=== PATIENT | female | born 1985 | race Caucasian/White ===

== ENCOUNTER 2021-07-29 19:05 | Inpatient (IN) | payer MEDICAID, OTHER ==
[~2021-07-29] VITALS: Ht 162.6 cm; Wt 72.5 kg
[2021-07-29 20:31] LABS: Basophils # (auto) 0.1 10 ^3/uL (0-0.2); Basophils % (auto) 0.6 % (0.0-2.0); Eosinophils # (auto) 0.1 10 ^3/uL (0-0.8); Eosinophils % (auto) 0.6 % (0.0-7.0); Hematocrit 34.8 % (36.0-46.0); Lymphocytes # (auto) 2.2 10 ^3/uL (0.4-5.4); Lymphocytes % (auto) 16.4 % (10.0-50.0); Mean Corpuscular Hgb Conc. 34.5 g/dL (32.0-36.0); Mean Corpuscular Volume 92.7 fL (80.0-100.0); Monocytes # (auto) 1.3 10 ^3/uL (0-1.3); Neutrophils # (auto) 9.7 10 ^3/uL (1.6-8.6); Neutrophils % (auto) 72.4 % (37.0-80.0); Nucleated Red Blood Cells % 0.1 %; Red Blood Cells 3.75 10^6/uL (4.0-5.20); White Blood Cell 13.4 10^3/uL (4.4-10.8)
[2021-07-29 20:45] LABS: INR 1.06 (0.9-1.15); Partial Thromboplastin Time 30.7 sec (23.6-33.0)
[2021-07-29 20:47] LABS: Albumin 3.6 g/dL (3.4-5.0); Calcium 8.8 mg/dL (8.5-10.1); Potassium 3.7 mmol/L (3.5-5.1)
[2021-07-29 20:51] LABS: BUN/Creatinine Ratio 12.8; Bilirubin, Total 0.3 mg/dL (0.2-1.0); Total Protein 7.8 g/dL (6.4-8.2)
[2021-07-29] MEDS ORDERED: LACTATED RINGER'S 1,000 ML IV ONE (22:00)
[2021-07-29] MEDS ORDERED: IOHEXOL 350 MG/ML 100ML IJ ONE (22:09)
[2021-07-29 22:25] LABS: Urine Bacteria FEW /hpf (None Seen); Urine Blood TRACE /uL (Negative); Urine Mucus FEW (None Seen); Urine WBC 111 /hpf (0 - 5); Urine WBC Clumps PRESENT /hpf (None Seen)
[2021-07-29] MEDS ORDERED: KETOROLAC TROMETH 30 MG/ML 1ML VIAL IV ONE (23:00)
[2021-07-30] VITALS (7 sets, daily range): BP systolic 99–117; BP diastolic 55–73
[2021-07-30] MEDS ORDERED: SODIUM CHLORIDE 0.9% 1,000 ML IV ONE (01:00)
[2021-07-30] MEDS ORDERED: cefTRIAXone SOD 1,000 MG VL IV ONE (01:00)
[2021-07-30] MEDS ORDERED: AZITHROMYCIN 250 MG TAB PO ONE (01:00)
[2021-07-30] MEDS ORDERED: ALBUTEROL SULF 2.5 MG/0.5ML(0.5%) NEB SOLN NEB PRN (02:00)
[2021-07-30] MEDS ORDERED: IPRATROPIUM BROM 0.5 MG/2.5ML INH SOL NEB PRN (02:00)
[2021-07-30] MEDS: SODIUM CHLORIDE 0.9% 1,000 ML IV SCH ×3 (02:56→22:04)
[2021-07-30] MEDS: ACETAMINOPHEN 325 MG TAB PO PRN ×2 (06:35→17:45)
[2021-07-30] MEDS: FAMOTIDINE 20 MG TAB PO SCH (09:28)
[2021-07-30 09:42] LABS: Basophils # (auto) 0 10 ^3/uL (0-0.2); Basophils % (auto) 0.4 % (0.0-2.0); Eosinophils # (auto) 0.1 10 ^3/uL (0-0.8); Eosinophils % (auto) 0.6 % (0.0-7.0); Hematocrit 30.6 % (36.0-46.0); Hemoglobin 10.2 g/dL (12.2-16.2); Lymphocytes # (auto) 1.7 10 ^3/uL (0.4-5.4); Lymphocytes % (auto) 15.1 % (10.0-50.0); Mean Corpuscular Hemoglobin 31.3 pg (28.0-32.0); Mean Corpuscular Hgb Conc. 33.4 g/dL (32.0-36.0); Mean Corpuscular Volume 93.6 fL (80.0-100.0); Monocytes # (auto) 1.2 10 ^3/uL (0-1.3); Monocytes % (auto) 10.3 % (0.0-12.0); Neutrophils # (auto) 8.5 10 ^3/uL (1.6-8.6); Neutrophils % (auto) 73.6 % (37.0-80.0); Red Blood Cells 3.27 10^6/uL (4.0-5.20); White Blood Cell 11.5 10^3/uL (4.4-10.8)
[2021-07-30] MEDS ORDERED: ENOXAPARIN SOD 40 MG/0.4 ML SYRINGE SC SCH (10:00)
[2021-07-30] MEDS: KETOROLAC TROMETH 30 MG/ML 1ML VIAL IV PRN ×2 (10:07→17:45)
[2021-07-30 10:53] LABS: Potassium 3.7 mmol/L (3.5-5.1)
[2021-07-30 11:05] LABS: BUN/Creatinine Ratio 11.8; Calcium 8.2 mg/dL (8.5-10.1)
[2021-07-30 13:57] LABS: Alcohol, Urine < 3.0 mg/dL (0-10); Amphetamine Screen, Urine NEGATIVE (NEGATIVE); Barbiturate Scree,Urine NEGATIVE (NEGATIVE); Benzodiazephine Screen, Urine NEGATIVE (NEGATIVE); Cannabinoid Screen, Urine NEGATIVE (NEGATIVE); Cocaine Screen, Urine NEGATIVE (NEGATIVE); Opiate Scree,Urine NEGATIVE (NEGATIVE); Phencyclidine Screen, Urine NEGATIVE (NEGATIVE)
[2021-07-30] MEDS ORDERED: AZITHROMYCIN 500MG/ 250ML 250 ML IV SCH (22:00)
[2021-07-30] MEDS: cefTRIAXone 1GM/50ML D5W 50 ML IV SCH ×2 (22:01→22:04)
[2021-07-30] MEDS: ENOXAPARIN SOD 60 MG/0.6 ML SYRINGE SC SCH (22:01)
[2021-07-31 05:00] VITALS: BP 103/59
[2021-07-31] MEDS: SODIUM CHLORIDE 0.9% 1,000 ML IV SCH ×3 (05:35→15:30)
[2021-07-31 06:31] LABS: Basophils # (auto) 0 10 ^3/uL (0-0.2); Basophils % (auto) 0.2 % (0.0-2.0); Eosinophils # (auto) 0.1 10 ^3/uL (0-0.8); Eosinophils % (auto) 0.5 % (0.0-7.0); Hematocrit 28.1 % (36.0-46.0); Hemoglobin 9.8 g/dL (12.2-16.2); Lymphocytes # (auto) 1.9 10 ^3/uL (0.4-5.4); Lymphocytes % (auto) 17.3 % (10.0-50.0); Mean Corpuscular Hemoglobin 32.6 pg (28.0-32.0); Mean Corpuscular Volume 93.3 fL (80.0-100.0); Monocytes % (auto) 8.7 % (0.0-12.0); Neutrophils % (auto) 73.3 % (37.0-80.0); Red Blood Cells 3.01 10^6/uL (4.0-5.20); Red Cell Distribution Width 12.5 % (11.8-14.3)
[2021-07-31 06:58] LABS: Calcium 7.8 mg/dL (8.5-10.1); Potassium 3.2 mmol/L (3.5-5.1)
[2021-07-31 07:00] LABS: BUN/Creatinine Ratio 13.3
[2021-07-31 08:00] VITALS: BP 113/67
[2021-07-31] MEDS: FAMOTIDINE 20 MG TAB PO SCH (09:55)
[2021-07-31] MEDS: ENOXAPARIN SOD 60 MG/0.6 ML SYRINGE SC SCH (09:55)
[2021-07-31] MEDS ORDERED: NICOTINE 21MG/24 HR TOPICAL PATCH TD SCH (10:00)
[2021-07-31] MEDS ORDERED: NIC21P TOP (10:58)
[2021-07-31] MEDS ORDERED: LEVO500T31 PO (10:58)
[2021-07-31] MEDS ORDERED: TRAM50TA2 PO (10:58)
[2021-07-31 12:00] VITALS: BP 101/61
[2021-07-31] MEDS: KETOROLAC TROMETH 30 MG/ML 1ML VIAL IV PRN (17:13)
== END 2021-07-31 17:48 | disposition home or self-care (01) | DRG 720 ==
LOC: ER 19:07 → EAST 07-30 01:52
PROVIDERS: ADMIT Internal Medicine; ATTEND Family Medicine
DX: A41.9 Sepsis, unspecified organism (principal); J96.01 Acute respiratory failure with hypoxia; J18.9 Pneumonia, unspecified organism; R07.81 Pleurodynia; N39.0 Urinary tract infection, site not specified; R00.0 Tachycardia, unspecified; F17.200 Nicotine dependence, unspecified, uncomplicated; Z80.9 Family history of malignant neoplasm, unspecified; Z71.6 Tobacco abuse counseling; Z86.711 Personal history of pulmonary embolism; I82.512 Chronic embolism and thrombosis of left femoral vein; I82.532 Chronic embolism and thrombosis of left popliteal vein
CPT/HCPCS: 36415; 71046; 71275; 74176; 80048; 80053; 80307; 81001; 81025; 83735; 84484; 84702; 85025; 85379; 85610; 85730; 86738; 87040; 87278; 87426; 87449; 93005; 93970; 96361; 96374; G0378; J0696; J1885

== ENCOUNTER 2024-05-24 18:14 | Emergency (ER) | payer MEDICAID ==
[~2024-05-24] VITALS: Ht 165.1 cm; Wt 76.4 kg
[~2024-05-24 18:14] MED LIST: LEVO500T31 PO; NIC21P TOP; TRAM50TA2 PO
--- NOTE | 2024-05-24 18:41 | ED.PDOC ---
History of Present Illness HPI Comments 39f presents to the ER w/ daughter and w/ no prior Hx associated to the c/c of Abnormal Vaginal Bleeding. Pt reports on having Left sided ABD cramping which was mild for the past 2 days but worsened today in the evening w/ Vaginal bleeding. Pt states that she "whipped and there was a good amount of blood". Pt LMP was March 29.Pt notes that she just got out of a cold. Social Hx of Vape use, occasional alcohol use, but denies substance use. Family Hx of Cancer. Denies chills, fever, N/V/D, SOB, CP or other associated symptom's, modifiers, or recent injuries or sick contact at this time. Chief Complaint: Vaginal Bleed Time Seen by MD: 18:35 Primary Care Provider: none Reviewed Notes: Nurses Notes, Medications, Allergies Allergies: Coded Allergies: NO KNOWN ALLERGIES (Unverified , 12/18/09) Home Meds Active Scripts Tramadol Hcl (Tramadol Hcl) 50 Mg Tab, 50 MG PO Q6HR PRN, #30 TAB Prov:NEETU PUCKETT MD 07/31/21 Nicotine (Nicoderm 21MG/24HR) 1 Patch Ph, 1 PATCH TOP DAILY, #28 PATCH 1 Refill Prov:NEETU PUCKETT MD 07/31/21 Levofloxacin (Levaquin) 500 Mg Tab, 500 MG PO DAILY, #10 TAB Prov:NEETU PUCKETT MD 07/31/21 Information Source: Patient Mode of Arrival: Ambulatory Severity: Moderate Timing: Days Duration: Since onset, Days Prehospital treatment: None Associated signs and symptoms Threatened , UTI Past Medical History PAST MEDICAL HISTORY: Denies Surgical History: Denies all surgeries MATCH UP PERSON History: No Pertinent MATCH UP PERSON History Family History Family History: Reviewed,noncontributory to illness, Family hx of Cancer Social History Smoker: Other (Vape) Alcohol: Occasionally Drugs: Denies Drug Use Lives In: Home Constitutional: denies: chills, diaphoresis, fatigue, fever, malaise, sweats, weakness, others EENTM: denies: blurred vision, double vision, ear bleeding, ear discharge, ear drainage, ear pain, ear ringing, eye pain, eye redness, hearing loss, mouth pain, mouth swelling, nasal discharge, nose bleeding, nose congestion, nose pain, photophobia, tearing, throat pain, throat swelling, voice changes, others Respiratory: denies: cough, hemoptysis, orthopnea, SOB at rest, shortness of breath, SOB with excertion, stridor, wheezing, others Cardiovascular: denies: chest pain, dizzy spells, diaphoresis, Dyspnea on exertion, edema, irregular heart beat, left arm pain, lightheadedness, palpitations, PND, syncope, others Gastrointestinal: reports: abdominal pain; denies: abdomen distended, blood streaked bowels, constipated, diarrhea, dysphagia, difficulty swallowing, hematemesis, melena, nausea, poor appetite, poor fluid intake, rectal bleeding, rectal pain, vomiting, others Genitourinary: reports: abnormal vagina bleeding, ; denies: burning, dyspareunia, dysuria, flank pain, frequency, hematuria, incontinence, pain, vagina discharge, urgency, others Neurological: denies: dizziness, fainting, headache, left sided numbness, left sided weakness, numbness, paresthesia, pre-existing deficit, right sided numbness, right sided weakness, seizure, speech problems, tingling, tremors, weakness, others Musculoskeletal: denies: back pain, gout, joint pain, joint swelling, muscle pain, muscle stiffness, neck pain, others Integumetry: denies: bruises, change in color, change in hair/nails, dryness, laceration, lesions, lumps, rash, wounds, others Allergic/Immunocompromised: denies: Difficulty Healing, Frequent Infections, Hives, Itching, others Hematologic/Lymphatic: denies: anemia, blood clots, easy bleeding, easy bruising, swollen glands, others Endocrine: denies: excessive hunger, excessive sweating, excessive thirst, excessive urination, flushing, intolerance to cold, intolerance to heat, unexplained weight gain, unexplained weight loss, others Psychiatric: denies: anxiety, bipolar disorder, depression, hopeless, panic disorder, schizophrenia, sleepless, suicidal, others All Other Systems: Reviewed and Negative Physical Exam General Appearance: No Apparent Distress HEENT: Normal ENT Inspection, Pharynx Normal, TMs Normal Neck: Full Range of Motion, Non-Tender, Normal, Normal Inspection Respiratory: Chest Non-Tender, Lungs Clear, No Accessory Muscle Use, No Respiratory Distress, Normal Breath Sounds Cardiovascular: No Edema, No JVD, No Murmur, No Gallop, Normal Peripheral Pulses, Regular Rate/Rhythm Breast Exam: Deferred Gastrointestinal: No Organomegaly, Non Tender, No Pulsatile Mass, Normal Bowel Sounds, Soft Genitalia: Deferred Pelvic: Deferred Rectal: Deferred Extremities: No calf tenderness, Normal capillary refill, Normal inspection, Normal range of motion, Non-tender, No pedal edema Musculoskeletal : Apperance: Normal Neurologic: Alert, student liaison officer II-XII nml as Tested, No Motor Deficits, Normal Affect, Normal Mood, No Sensory Deficits Cerebellar Function: Normal Reflexes: Normal Skin: Dry, Normal Color, Warm Lymphatic: No Adenopathy Was a procedure done? Was a procedure done?: No Differential Dx Considerations may include: Threatened , UTI X-Ray, Labs, Meds, VS Vital Signs Date Time Temp Pulse Resp B/P (MAP) Pulse Ox O2 Delivery O2 Flow Rate FiO2 05/24/24 18:28 98.8 74 16 117/66 (83) 98 Lab Test 05/24/24 19:14 Range/Units Beta HCG, Quantitative Pending Ultrasound of the pelvis shows: IMPRESSION: IUP single live fetus 6 weeks 5 days AUA corresponding to an ДМИТРИЙ of January 12, 2025. Small subchorionic hemorrhage measuring 0.9 x 0.7 x 0.4 cm. The patient was being discharged The patient will follow up with the primary care doctor The patient will return to the emergency department's the condition worsens. Images Reviewed?: Images reviewed and evaluated by me Time of 1ST Reevaluation: 19:05 Reevaluation 1ST: Unchanged Time of 2ND Reevaluation: 19:37 Reevaluation 2ND: Improved Patient Education/Counseling: Diagnosis, Treatment, Prognosis, Need For Follow Up Family Education/Counseling: Diagnosis, Treatment, Prognosis, Need For Follow Up Departure 1 Departure Time of Disposition: 19:37 Impression: Primary Impression: Threatened Disposition: 01 HOME / SELF CARE / HOMELESS Condition: Fair Discharged With: Self Critical Care Note Critical Care Time?: No Stability Stability form required: No Heart Score Heart Score: Heart Score Response (Comments) Value History N/A 0 EKG N/A 0 Age N/A 0 Risk Factors N/A 0 Troponin N/A 0 Total 0 I personally scribed for MITCHELL JOHNSON MD ([email or web address]) on 05/24/24 at 18:41. Electronically submitted by Gokul [email or web address]). MITCHELL JOHNSON MD May 24, 2024 18:41
--- NOTE | 2024-05-24 19:20 | DVH ---
OB ULTRASOUND <14 WEEKS: HISTORY: pain and bleeding TECHNIQUE: Multiple real-time grayscale sonographic images of the pelvis with duplex Doppler color f low, spectral and M-mode analysis. TRANSDUCERS: Transabdominal FINDINGS: The uterus measures 9.8 x 6.3 x 5.7 cm Right ovary measures 2.9 x 2.3 x 2.9 cm with normal Doppler color flow Left ovary was not visualized on this study. IUP single live fetus at 6 weeks 5 days average ultrasound age based on mean crown-rump length of 0.7 cm and gestational sac size of 2.2 cm heart rate detected at 148 beats per minute. Yolk sac is visualized. Small subchorionic hemorrhage measuring 0.9 x 0.7 x 0.4 cm. IMPRESSION: IUP single live fetus 6 weeks 5 days AUA corresponding to an ДМИТРИЙ of January 12, 2025. Small subchorionic hemorrhage measuring 0.9 x 0.7 x 0.4 cm.
[2024-05-24 19:57] VITALS: BP 117/66; PULSE 74; RESP 16; TEMP 98.8; O2SAT 98
== END 2024-05-24 20:08 | disposition home or self-care (01) ==
LOC: ER 18:14
DX: O20.0 Threatened abortion (principal); F17.290 Nicotine dependence, other tobacco product, uncomplicated; Z3A.01 Less than 8 weeks gestation of pregnancy; Z79.899 Other long term (current) drug therapy
CPT/HCPCS: 36415; 76801; 84702

== ENCOUNTER 2024-12-29 11:15 | Inpatient (IN) | payer MEDICAID ==
[~2024-12-29] VITALS: Ht 165.1 cm; Wt 81.6 kg
[2024-12-29] MEDS ORDERED: MORPHINE SULFATE 4 MG/ML SYR/VIAL IM STA (13:00)
[2024-12-29] MEDS ORDERED: MORPHINE SULFATE 4 MG/ML SYR/VIAL IV STA (13:00)
[2024-12-29] MEDS: NALOXONE HCL 0.4 MG/ML VIAL IV ONE ×2 (13:45→15:00)
[2024-12-29] MEDS: ONDANSETRON HCL 4 MG/2 ML VIAL IV ONE (13:50)
[2024-12-29] MEDS: MORPHINE SULFATE 4 MG/ML SYR/VIAL IV STA (13:51)
[2024-12-29] MEDS: MORPHINE SULFATE 4 MG/ML SYR/VIAL IM STA (13:55)
--- NOTE | 2024-12-29 14:34 | DVH ---
LIMITED OB ULTRASOUND > 14 WKS: HISTORY: labor/unstable lie TECHNIQUE: Multiple real-time grayscale images of the gravid uterus with duplex Doppler color flow an d M-mode spectral analysis. TRANSDUCER: Transabdominal FINDINGS: IUP single live fetus at 36 weeks 4 days based on composite averages of the BPD, head circumference, abdominal circumference and femur length Estimated weight 3184 grams heart rate 144 beats per minute WON 13.1 cm Cervix not well visualized Cephalic Presentation Anterior Placenta without previa or abruption. IMPRESSION: IUP single live fetus at 36 weeks 4 days AUA corresponding to an ДМИТРИЙ of 01/22/2025.
[2024-12-29] MEDS: LIDOCAINE HCL 2 %PF INJ 10ML AMP IJ ONE (14:52)
[2024-12-29] MEDS: fentaNYL CITRATE 100 MCG/2 ML VL ONE (14:52)
[2024-12-29] MEDS ORDERED: SODIUM CHLORIDE 0.9% 500 ML IV PRN (15:00)
[2024-12-29] MEDS ORDERED: fentaNYL 400mCg/200ml W ROPIVA 200 ML EPI SCH (15:00)
[2024-12-29] MEDS: fentaNYL CITRATE 100 MCG/2 ML VL IV ONE (15:22)
[2024-12-29] MEDS: ROPIVACAINE HCL 100 ML ONE ×2 (15:23→22:45)
[2024-12-29] MEDS: LACTATED RINGER'S 1,000 ML IV ONE (15:24)
--- NOTE | 2024-12-29 15:26 | EPIDURAL ---
Anesthesia Procedural Note - Epidural Informed consent obtained?: Yes Medication Administered: Fentanyl 100 mcg Sterile prept drape: Yes Spinal level of insertion: L4-L5 Test dose of lidocaine & Epine: Negative Infusion started: Yes Start time: 15:00 End time: 15:20 Procedure description Procedure description: Called for labor analgesia. Patient is in labor, requesting epidural. Patient examined, chart reviewed and history taken (BP 120/80 HR 99 spO2 99). Informed consent for CSE obtained. Sitting position, sterile prep and drape. Time out done. L4-5 space infiltrated with 1% lido. Epidural needle placed with ABDOUL at 6cm. 25G spinal needle +clear CSF. 15mcg fentanyl given IT (BP 118/78 HR 98 spO2 99). Aspiration and test dose (3cc 1.5% lido with epi)) negative. 85mcg fentanyl given via epidural catheter (BP 117/78 HR 97 spO2 98). Patient reports pain relief. 0.2% ropivacaine infusion started. Will follow as needed. NILSON GONZALEZ MD Dec 29, 2024 15:26
[2024-12-29] MEDS ORDERED: LIDOCAINE 2%HCL (LOCAL ANESTH.) INJ 20ML MDV IJ PRN (15:30)
[2024-12-29 15:46] LABS: Hematocrit 32.1 % (36.0-46.0); Hemoglobin 10.8 g/dL (12.2-16.2); Mean Corpuscular Hemoglobin 30.9 pg (28.0-32.0); Mean Corpuscular Volume 91.7 fL (80.0-100.0)
[2024-12-29 15:59] LABS: Alanine Aminotransferase 19 U/L (7-40); Albumin 4.0 g/dL (3.2-4.8); Alkaline Phosphatase 180 U/L (46-116); Anion Gap 11 (5-15); BUN/Creatinine Ratio 9.6 (10.0-20.0); Bilirubin, Total 0.6 mg/dL (0.2-1.0); Blood Urea Nitrogen 8 mg/dL (9-23); Calcium 9.7 mg/dL (8.7-10.4); Carbon Dioxide 21 mmol/L (20-31); Chloride 105 mmol/L (98-107); Glucose 100 mg/dL (74-106); Potassium 3.9 mmol/L (3.5-5.1); Sodium 137 mmol/L (136-145); Total Protein 6.6 g/dL (5.7-8.2)
[2024-12-29 16:05] LABS: INR 0.92 (0.9-1.15); Partial Thromboplastin Time 26.8 SEC (24.5-34.5); Prothrombin Time 9.8 sec (9.3-11.8); Urine Protein, UAD Negative (Negative)
[2024-12-29 16:27] LABS: Amphetamine Screen, Urine Neg (NEGATIVE); Barbiturate Scree,Urine Neg (NEGATIVE); Benzodiazephine Screen, Urine Neg (NEGATIVE); Cannabinoid Screen, Urine Neg (NEGATIVE); Cocaine Screen, Urine Neg (NEGATIVE); Opiate Scree,Urine Neg (NEGATIVE); Phencyclidine Screen, Urine Neg (NEGATIVE)
[2024-12-29 16:43] LABS: Total Cells Counted 100.0 (100)
[2024-12-29 16:44] LABS: RBC Morphology Normal
--- NOTE | 2024-12-29 16:54 | DVHHP2 ---
OB CC & HPI Date Date of Admission: Dec 29, 2024 Patient Identification: : 2 Para: 0 EDC: Jan 12, 2025 EGA: 38.0wks Chief Complaints: Reason for admission: other (labor) History of Present Complaints 39yo IUP@38.0wks presents in labor. Pt reports UCs Q2 min that started this morning. Wants an epidural. Denies LOF/VB/WHITAKER/vision changes/RUQ pain. Endorses +FM. PNC: Routine PNC with Dr. Cullen at [facility], adequate visits, PNC complicated by iron deficiency anemia. GTT wnl, dating based on 6wk sono, GBS positive. OB hx: TAB x1 Past Medical History Cardiac: No pertinent Hx Pulmonary: No pertinent Hx Central Nervous System: No pertinent Hx GI: No pertinent Hx Hemotology/Oncology: Iron deficiency anemia Hepatobiliary: No pertinent Hx Psychiatric: No pertinent Hx Musculoskeletal: No pertinent Hx Rheumotologic: No pertinent Hx Infectious Disease: No peritnent Hx ENT: No pertinent Hx Renal/: No pertinent Hx Endocrine: No pertinent Hx Dermatology: No pertinent Hx Past Surgical History: No pertinent Hx OB History OB History Care: Good Care Ultrasounds: Normal mid trimester US Obstetrical Complications: None Medical Complications: None Allergies: Coded Allergies: NO KNOWN ALLERGIES (Unverified , 12/18/09) Allergies NKDA Home Meds Discontinued Scripts Tramadol Hcl (Tramadol Hcl) 50 Mg Tab, 50 MG PO Q6HR PRN, #30 TAB Prov:NEETU PUCKETT MD 07/31/21 Nicotine (Nicoderm 21MG/24HR) 1 Patch Ph, 1 PATCH TOP DAILY, #28 PATCH 1 Refill Prov:NEETU PUCKETT MD 07/31/21 Levofloxacin (Levaquin) 500 Mg Tab, 500 MG PO DAILY, #10 TAB Prov:NEETU PUCKETT MD 07/31/21 Home Meds PNV, iron Current Medications Current Medications Medications (Trade) Dose Ordered Sig/Lucita Route PRN Reason Start Time Stop Time Status Last Admin Morphine Sulfate 10 mg ONCE STAT IV 12/29/24 13:00 12/29/24 13:18 DC Morphine Sulfate 10 mg ONCE STAT IM 12/29/24 13:00 12/29/24 13:18 DC Morphine Sulfate 5 mg STAT STAT IV 12/29/24 13:16 12/29/24 13:33 DC 12/29/24 13:51 Morphine Sulfate 5 mg STAT STAT IM 12/29/24 13:16 12/29/24 13:34 DC 12/29/24 13:55 Sodium Chloride 500 ml @ 500 mls/hr Q1H PRN IV FOR BP LESS THAN 90 12/29/24 15:00 Fentanyl/ Ropivacaine 200 ml @ 0 mls/hr UD EPI 12/29/24 15:00 12/31/24 14:59 Lactated Ringer's 1,000 ml @ 125 mls/hr Q8H IV 12/29/24 15:30 Witch Madalyn (Tucks) 1 pad PRN PRN TOP PERINEAL AREA DISCOMFORT 12/29/24 15:30 Sodium Lauryl Sulfate (Phisoderm) 240 ml PRN PRN TOP PERINEAL AREA DISCOMFORT 12/29/24 15:30 Benzocaine (Dermoplast) 1 applic PRN PRN TOP PERINEAL AREA DISCOMFORT 12/29/24 15:30 Lidocaine HCl (Xylocaine) 20 ml ONCE PRN IJ PERINEAL AREA DISCOMFORT 12/29/24 15:30 Penicillin G Potassium 0808436 units/Dextrose 50 ml @ 100 mls/hr Q4H IV 12/29/24 19:45 Family & Social History Family/Social History Past Family/Social History: denies Blood Type: O+ Rubella: immune RPR/VDRL: Negative GBS Status: Positive HBsAG: Negative Review of Systems Constitutional: No symptom reported Ears, Nose, & Throat: No symptom reported Eyes: No symptom reported Pulmonary/Respiratory: No symptom reported Cardiovascular: No symptom reported Gastrointestinal: No symptom reported Genitourinary: No symptom reported Musculoskeletal: No symptom reported Skin: No symptom reported Psychiatric: No symptom reported Endocrine: No symptom reported Hemotologic/Lymphatic: No symptom reported OB Admission Exam Physical Exam Vitals: Vital Signs Date Time Temp Pulse Resp B/P (MAP) Pulse Ox O2 Delivery O2 Flow Rate FiO2 12/29/24 15:22 116/63 12/29/24 13:[address] [address] Ph: [phone] DIAGNOSTIC IMAGING Diagnostic Imaging Report : [id number] Signed PATIENT: SUNIL GRAF ACCT: [id number] UNIT: [id number] : 1985 LOC: [facility] ROOM / BED: [facility] / A AGE / SEX: 39 / F ADM STATUS: ADM IN SERVICE 1315 ORDERING PHYSICIAN: BERLIN MAHMOOD CNM PROCEDURE(s): OBUS - OB ULTRASOUND COMP GTR 14 WKS REASON: labor/unstable lie ORDER NUMBER(s): [id number], ACCESSION NUMBER(s): [id number] LIMITED OB ULTRASOUND > 14 WKS: HISTORY: labor/unstable lie TECHNIQUE: Multiple real-time grayscale images of the gravid uterus with duplex Doppler color flow and M-mode spectral analysis. TRANSDUCER: Transabdominal FINDINGS: IUP single live fetus at 36 weeks 4 days based on composite averages of the BPD, head circumference, abdominal circumference and femur length Estimated weight 3184 grams heart rate 144 beats per minute WON 13.1 cm Cervix not well visualized Cephalic Presentation Anterior Placenta without previa or abruption. IMPRESSION: IUP single live fetus at 36 weeks 4 days AUA corresponding to an ДМИТРИЙ of 01/22/2025. ATED BY: LATRICE ANAYA MD DICTATED DATE/TIME: 12/29/241431 SIGNED BY: LATRICE ANAYA MD SIGNED DATE/TIME: 12/29/241431 CC: HEENT: TMs Normal, Fontanelles Normal, Nasal Mucosa Normal, Eyes non-injected, Oropharynx Normal, PERRLA, Moist Membranes, EOMI Heart: Rhythm Normal Lungs: Clear Abdomen: Gravid Extremities: Normal Reflexes: Normal Pelvic Exam: initially 90/-1, ambulated for 1 hour, then 290/-1 plus morphine rest 5mg IV and 5mg IM with zofran 4mg IV and IV LR 1L bolus given then SVE: 90/-1, intact upon admission Heart Rate: 140's Accelerations: No Accelerations Decelerations: Variable Decelerations (x1) Contractions on Admission: < 5 Minutes Apart Intensity: Moderate OB Plan Plan Admitting Diagnosis: LABOR Plan: Expectant Management Other Plan: A: 39yo IUP@38.0wks Labor Category II EFM Intact Membranes GBS positive P: Admit to L&D Informed consent obtained Expectant management for now due to frequent UCs monitoring per order Routine labs ordered Pain mgmt - epidural Frequent position changes in bed with peanut ball encouraged Limit SVE unless necessary Intrauterine resuscitation PRN Anticipate STACEY will consult with Dr. Cullen PRN Visit Coding OBGYN Date of Service: Dec 29, 2024 Billing Provider: BERLIN MAHMOOD CNM DIRECTOR OF GLOBAL TALENT Common Visit Codes: [id number] INP/OBS CARE (MOD) DIRECTOR OF GLOBAL TALENT Procedure Codes: 36832-80- NON-STRESS TEST BERLIN MAHMOOD CNM Dec 29, 2024 16:54
[2024-12-29] MEDS: PHISODERM TOP SOLN 240ML BTL TOP PRN (17:20)
[2024-12-29] MEDS: WITCH HAZEL-GLYCERIN PAD TOP PRN (17:20)
[2024-12-29] MEDS: PENICILLIN G POT 5MIL/D5 50ML 50 ML IV ONE (17:20)
[2024-12-29] MEDS: DERMOPLAST 60ML BOTTLE TOP PRN (17:20)
[2024-12-29] MEDS: FAMOTIDINE (10MG/ML) 2ML VL IV SCH (17:28)
--- NOTE | 2024-12-29 19:44 | DVHPN2 ---
STACEY Labor Progress Note Date and Time Seen Date Seen: Dec 29, 2024 Time Seen: 19:21 Subjective Patient reports: No new complaints Objective Vital Signs VSS, see CPN Monitoring Method Monitoring Method: External Heart Rate Heart Rate Baseline: 170 Heart Rate Variability: Moderate Presence of FHR Accelerations: Yes Presence of FHR Decelerations: No Comment on Trends or Patterns: IV fluid bolus of 300ml started for tachycardia Are all 5 Components of the FH: Yes Contractions Contractions Frequency: Other (q2-3 min) Duration of Contraction: 90 Contractions Intensity: Moderate Contractions Resting Tone: Relaxed Membranes Membranes: Bulging Vaginal Exam Vag Exam Deferred: No (SVE: 5.5/90/-1) Vaginal Exam Presentation: VTX Vaginal Exam Show: Moderate Medications Medications - Pitocin: No Medications - Pain Medications: s/p morphin rest prior to admission and epidural Medication - Epidural: Yes Lab Results Lab Results Vital Signs Date Time Temp Pulse Resp B/P (MAP) Pulse Ox O2 Delivery O2 Flow Rate FiO2 12/29/24 15:22 116/63 12/29/24 13:55 95 22 Current Medications Medications (Trade) Dose Ordered Sig/Lucita Start Time Stop Time Status Last Admin Dose Admin Morphine Sulfate 10 mg ONCE STAT 12/29/24 13:00 12/29/24 13:18 DC Morphine Sulfate 10 mg ONCE STAT 12/29/24 13:00 12/29/24 13:18 DC Ondansetron HCl (Zofran) 4 mg ONCE ONCE 12/29/24 13:00 12/29/24 13:11 DC 12/29/24 13:50 4 MG Lactated Ringer's 1,000 ml @ 1,000 mls/hr Q1H ONCE 12/29/24 13:00 12/29/24 13:59 DC 12/29/24 15:24 1,000 MLS/HR Morphine Sulfate 5 mg STAT STAT 12/29/24 13:16 12/29/24 13:33 DC 12/29/24 13:51 5 MG Morphine Sulfate 5 mg STAT STAT 12/29/24 13:16 12/29/24 13:34 DC 12/29/24 13:55 5 MG Naloxone HCl (Narcan) 0.2 mg PRN ONCE 12/29/24 13:45 12/29/24 13:49 DC Sodium Chloride 500 ml @ 500 mls/hr Q1H PRN 12/29/24 15:00 Naloxone HCl (Narcan) 0.2 mg PRN ONCE 12/29/24 15:00 12/29/24 15:04 DC Ephedrine Sulfate (ePHEDrine SULFATE) 10 mg PRN ONCE 12/29/24 15:00 12/29/24 15:04 DC Fentanyl Citrate 100 mcg ONCE ONCE 12/29/24 15:00 12/29/24 15:04 DC 12/29/24 15:22 100 MCG Lactated Ringer's 500 ml @ 500 mls/hr Q1H ONCE 12/29/24 15:00 12/29/24 15:59 DC Lidocaine/ Epinephrine (Xylocaine 1%-Mpf/ Epinephrine 1:200,000) 30 ml PRN ONCE 12/29/24 15:00 12/29/24 15:04 DC Fentanyl/ Ropivacaine 200 ml @ 0 mls/hr UD 12/29/24 15:00 12/31/24 14:59 Lidocaine HCl (Xylocaine) 5 ml ONCE ONCE 12/29/24 15:00 12/29/24 15:04 DC Lidocaine/ Epinephrine (Xylocaine-Mpf/ Epinephrine 1.5 %-1:372147) 10 ml ONCE ONCE 12/29/24 15:00 12/29/24 15:04 DC Lactated Ringer's 1,000 ml @ 125 mls/hr Q8H 12/29/24 15:30 Witch Madalyn (Tucks) 1 pad PRN PRN 12/29/24 15:30 12/29/24 17:20 1 PAD Sodium Lauryl Sulfate (Phisoderm) 240 ml PRN PRN 12/29/24 15:30 12/29/24 17:20 240 ML Benzocaine (Dermoplast) 1 applic PRN PRN 12/29/24 15:30 12/29/24 17:20 1 APPLIC Lidocaine HCl (Xylocaine) 20 ml ONCE PRN 12/29/24 15:30 Penicillin G Potassium 50 ml @ 100 mls/hr ONCE ONCE 12/29/24 15:45 12/29/24 16:14 DC 12/29/24 17:20 100 MLS/HR Penicillin G Potassium [id number] units/Dextrose 50 ml @ 100 mls/hr Q4H 12/29/24 19:45 12/29/24 18:18 DC Famotidine (Pepcid Injection) 20 mg Q12H 12/29/24 17:00 12/29/24 17:28 20 MG Ondansetron HCl (Zofran) 4 mg Q6HPRN PRN 12/29/24 20:00 Penicillin G Potassium [id number] units/Dextrose 50 ml @ 100 mls/hr Q4H 12/29/24 21:30 Laboratory Tests Test 12/29/24 15:15 Range/Units White Blood Count 22.5 H 4.4-10.8 10^3/uL Red Blood Count 3.50 L 4.0-5.20 10^6/uL Hemoglobin 10.8 L 12.2-16.2 g/dL Hematocrit 32.1 L 36.0-46.0 % Mean Corpuscular Volume 91.7 80.0-100.0 fL Mean Corpuscular Hemoglobin 30.9 28.0-32.0 pg Mean Corpuscular Hemoglobin Concent 33.7 32.0-36.0 g/dL Red Cell Distribution Width 14.1 11.8-14.3 % Platelet Count 231 140-450 10^3/uL Mean Platelet Volume 9.8 6.9-10.8 fL Neutrophils (%) (Auto) 37.0-80.0 % Lymphocytes (%) (Auto) 10.0-50.0 % Monocytes (%) (Auto) 0.0-12.0 % Basophils (%) (Auto) 0.0-2.0 % Neutrophils # (Auto) 1.6-8.6 10 ^3/uL Lymphocytes # (Auto) 0.4-5.4 10 ^3/uL Monocytes # (Auto) 0-1.3 10 ^3/uL Differential Total Cells Counted 100.0 100 Neutrophils % (Manual) 78 37.0-80.0 Band Neutrophils % (Manual) 10 Lymphocytes % (Manual) 6 L 10.0-50.0 Monocytes % (Manual) 6 0-12 Eosinophils % (Manual) 0 0-7 Basophils % (Manual) 0 0.0-2.0 Metamyelocytes % (manual) 0 Myelocytes % (Manual) 0 Promyelocytes % (Manual) 0 Blast Cells % (Manual) 0 Reactive Lymphocytes 0 Platelet Estimate Adequate Red Blood Cell Morphology Normal Prothrombin Time 9.8 9.3-11.8 sec Prothrombin Time INR 0.92 0.9-1.15 Activated Partial Thromboplast Time 26.8 24.5-34.5 SEC Urine Color Light-yellow Yellow Urine Clarity Clear Clear Urine pH 7.0 5.0-9.0 Urine Specific [place] 1.008 1.001-1.035 Urine Protein Negative Negative Urine Ketones Negative Negative Urine Blood 2+ H Negative /uL Urine Nitrite Negative Negative Urine Bilirubin Negative Negative Urine Urobilinogen Normal Negative mg/dL Urine Leukocyte Esterase 3+ Negative /uL Urine RBC 4 0 - 4 /hpf Urine Microscopic WBC 24 H 0-5 /HPF Urine Squamous Epithelial Cells Few <5 /hpf Urine Bacteria Few H None Seen /hpf Urine Glucose Normal Normal mg/dL Sodium Level 137 136-145 mmol/L Potassium Level 3.9 3.5-5.1 mmol/L Chloride Level 105 98-107 mmol/L Carbon Dioxide Level 21 20-31 mmol/L Anion Gap 11 5-15 Blood Urea Nitrogen 8 L 9-23 mg/dL Creatinine 0.83 0.550-1.02 mg/dL Glomerular Filtration Rate Calc 92 >90 mL/min BUN/Creatinine Ratio 9.6 L 10.0-20.0 Serum Glucose 100 74-106 mg/dL Calcium Level 9.7 8.7-10.4 mg/dL Total Bilirubin 0.6 0.2-1.0 mg/dL Aspartate Amino Transferase (AST) 21 13-40 U/L Alanine Aminotransferase (ALT) 19 7-40 U/L Alkaline Phosphatase 180 H 46-116 U/L Total Protein 6.6 5.7-8.2 g/dL Albumin 4.0 3.2-4.8 g/dL Urine Opiates Screen Neg NEGATIVE Urine Fentanyl Screen Neg NEGATIVE Urine Barbiturates Screen Neg NEGATIVE Urine Phencyclidine Screen Neg NEGATIVE Urine Amphetamines Screen Neg NEGATIVE Urine Benzodiazepines Screen Neg NEGATIVE Urine Cocaine Screen Neg NEGATIVE Urine Cannabinoids Screen Neg NEGATIVE Treponema pallidum Antibody Non-reactive Negative Assessment Assessment A: 39yo IUP@38.0wks Labor Category II EFM Intact Membranes GBS positive Plan Plan P: Expectant management for now due to frequent UCs Discussed potential AROM during next SVE with pt. Pt will think about it. Continue with IV PCN for GBS treatment Continuous monitoring Pain mgmt - epidural Frequent position changes in bed with peanut ball encouraged Limit SVE unless necessary Intrauterine resuscitation PRN Anticipate Dr. Cullen consulted, agrees with POC. Plan discussed with: Patient, Other (family) Visit Coding OBGYN Date of Service: Dec 29, 2024 Billing Provider: BERLIN MAHMOOD CNM WAREHOUSE HELPER Common Visit Codes: [id number] INP/OBS CARE(MOD) BERLIN MAHMOOD CNM Dec 29, 2024 19:44
[2024-12-29] MEDS ORDERED: PENICILLIN G POTASSIUM 2,500,000 UNITS in D5W 5% 50 ML IV SCH (19:45)
[2024-12-29] MEDS: LACTATED RINGER'S 1,000 ML IV SCH (20:20)
[2024-12-29] MEDS ORDERED: GENTAMICIN PER PHARMACY 0 ML IV SCH (20:45)
[2024-12-29] MEDS: AMPICILLIN SOD 2GM INJ 2 GM in SODIUM CHL 0.9% 100 ML IV SCH (21:10)
[2024-12-29] MEDS: ACETAMINOPHEN 325 MG TAB PO PRN (21:20)
[2024-12-29] MEDS ORDERED: ceFAZolin 1GM/50ML 50 ML IV SCH (22:00)
[2024-12-29] MEDS: PENICILLIN G POTASSIUM 2,500,000 UNITS in D5W 5% 50 ML IV SCH (22:34)
[2024-12-29] MEDS: GENTAMICIN SULFATE IV SCH (23:23)
[2024-12-29] MEDS: D5W 5% IV SCH (23:23)
--- NOTE | 2024-12-29 23:23 | DVHPN2 ---
[facility] Labor Progress Note Date and Time Seen Date Seen: Dec 29, 2024 Time Seen: 23:20 Subjective Patient reports: No new complaints Subjective Comment Pt reports having a UTI that she was taking oral antibiotics for a couple days only. Objective Vital Signs VSS, see chart Monitoring Method Monitoring Method: External Heart Rate Heart Rate Baseline: 145 Heart Rate Variability: Moderate Presence of FHR Accelerations: Yes Presence of FHR Decelerations: Yes Heart Rate Type of Decel: Variable Decelerations (x1) Are all 5 Components of the FH: Yes Contractions Contractions Frequency: Other (q2-3 min) Duration of Contraction: 90 Contractions Intensity: Moderate Contractions Resting Tone: Relaxed Membranes Membranes: Ruptured Amniotic Fluid Color: Clear (blood tinged) Vaginal Exam Vag Exam Deferred: No Vaginal Exam Dilation: 6 Vaginal Exam Effacement: 90 Vaginal Exam Station: 0 Vaginal Exam Presentation: VTX (molding noted) Vaginal Exam Show: Small Medications Medications - Pitocin: No Medications - Pain Medications: s/p morphine rest Medication - Epidural: Yes Lab Results Lab Results Vital Signs Date Time Temp Pulse Resp B/P (MAP) Pulse Ox O2 Delivery O2 Flow Rate FiO2 12/29/24 15:22 116/63 12/29/24 13:55 95 22 Current Medications Medications (Trade) Dose Ordered Sig/Lucita Start Time Stop Time Status Last Admin Dose Admin Morphine Sulfate 10 mg ONCE STAT 12/29/24 13:00 12/29/24 13:18 DC Morphine Sulfate 10 mg ONCE STAT 12/29/24 13:00 12/29/24 13:18 DC Ondansetron HCl (Zofran) 4 mg ONCE ONCE 12/29/24 13:00 12/29/24 13:11 DC 12/29/24 13:50 4 MG Lactated Ringer's 1,000 ml @ 1,000 mls/hr Q1H ONCE 12/29/24 13:00 12/29/24 13:59 DC 12/29/24 15:24 1,000 MLS/HR Morphine Sulfate 5 mg STAT STAT 12/29/24 13:16 12/29/24 13:33 DC 12/29/24 13:51 5 MG Morphine Sulfate 5 mg STAT STAT 12/29/24 13:16 12/29/24 13:34 DC 12/29/24 13:55 5 MG Naloxone HCl (Narcan) 0.2 mg PRN ONCE 12/29/24 13:45 12/29/24 13:49 DC Sodium Chloride 500 ml @ 500 mls/hr Q1H PRN 12/29/24 15:00 Naloxone HCl (Narcan) 0.2 mg PRN ONCE 12/29/24 15:00 12/29/24 15:04 DC Ephedrine Sulfate (ePHEDrine SULFATE) 10 mg PRN ONCE 12/29/24 15:00 12/29/24 15:04 DC Fentanyl Citrate 100 mcg ONCE ONCE 12/29/24 15:00 12/29/24 15:04 DC 12/29/24 15:22 100 MCG Lactated Ringer's 500 ml @ 500 mls/hr Q1H ONCE 12/29/24 15:00 12/29/24 15:59 DC Lidocaine/ Epinephrine (Xylocaine 1%-Mpf/ Epinephrine 1:200,000) 30 ml PRN ONCE 12/29/24 15:00 12/29/24 15:04 DC Fentanyl/ Ropivacaine 200 ml @ 0 mls/hr UD 12/29/24 15:00 12/31/24 14:59 Lidocaine HCl (Xylocaine) 5 ml ONCE ONCE 12/29/24 15:00 12/29/24 15:04 DC Lidocaine/ Epinephrine (Xylocaine-Mpf/ Epinephrine 1.5 %-1:[id number]) 10 ml ONCE ONCE 12/29/24 15:00 12/29/24 15:04 DC Lactated Ringer's 1,000 ml @ 125 mls/hr Q8H 12/29/24 15:30 12/29/24 20:20 125 MLS/HR Bailey Bergman (Tucks) 1 pad PRN PRN 12/29/24 15:30 12/29/24 17:20 1 PAD Sodium Lauryl Sulfate (Phisoderm) 240 ml PRN PRN 12/29/24 15:30 12/29/24 17:20 240 ML Benzocaine (Dermoplast) 1 applic PRN PRN 12/29/24 15:30 12/29/24 17:20 1 APPLIC Lidocaine HCl (Xylocaine) 20 ml ONCE PRN 12/29/24 15:30 Penicillin G Potassium 50 ml @ 100 mls/hr ONCE ONCE 12/29/24 15:45 12/29/24 16:14 DC 12/29/24 17:20 100 MLS/HR Penicillin G Potassium [id number] units/Dextrose 50 ml @ 100 mls/hr Q4H 12/29/24 19:45 12/29/24 18:18 DC Famotidine (Pepcid Injection) 20 mg Q12H 12/29/24 17:00 12/29/24 17:28 20 MG Ondansetron HCl (Zofran) 4 mg Q6HPRN PRN 12/29/24 20:00 Penicillin G Potassium [id number] units/Dextrose 50 ml @ 100 mls/hr Q4H 12/29/24 21:30 12/29/24 22:34 100 MLS/HR Cefazolin Sodium 50 ml @ 100 mls/hr Q8HR 12/29/24 22:00 12/29/24 20:44 DC Ampicillin Sodium 2 gm/Sodium Chloride 100 ml @ 100 mls/hr Q6H 12/29/24 20:45 12/29/24 21:10 100 MLS/HR Gentamicin Sulfate 0 ml @ 0 mls/hr PER PHARMACY 12/29/24 20:45 12/31/24 20:44 Acetaminophen (Tylenol Tablet) 650 mg Q4HP PRN 12/29/24 21:00 12/29/24 21:20 650 MG Gentamicin Sulfate 335 mg/ Dextrose 108.375 ml @ 99.885 mls/hr DAILY@2130 12/29/24 21:30 Laboratory Tests Test 12/29/24 15:15 Range/Units White Blood Count 22.5 H 4.4-10.8 10^3/uL Red Blood Count 3.50 L 4.0-5.20 10^6/uL Hemoglobin 10.8 L 12.2-16.2 g/dL Hematocrit 32.1 L 36.0-46.0 % Mean Corpuscular Volume 91.7 80.0-100.0 fL Mean Corpuscular Hemoglobin 30.9 28.0-32.0 pg Mean Corpuscular Hemoglobin Concent 33.7 32.0-36.0 g/dL Red Cell Distribution Width 14.1 11.8-14.3 % Platelet Count 231 140-450 10^3/uL Mean Platelet Volume 9.8 6.9-10.8 fL Neutrophils (%) (Auto) 37.0-80.0 % Lymphocytes (%) (Auto) 10.0-50.0 % Monocytes (%) (Auto) 0.0-12.0 % Basophils (%) (Auto) 0.0-2.0 % Neutrophils # (Auto) 1.6-8.6 10 ^3/uL Lymphocytes # (Auto) 0.4-5.4 10 ^3/uL Monocytes # (Auto) 0-1.3 10 ^3/uL Differential Total Cells Counted 100.0 100 Neutrophils % (Manual) 78 37.0-80.0 Band Neutrophils % (Manual) 10 Lymphocytes % (Manual) 6 L 10.0-50.0 Monocytes % (Manual) 6 0-12 Eosinophils % (Manual) 0 0-7 Basophils % (Manual) 0 0.0-2.0 Metamyelocytes % (manual) 0 Myelocytes % (Manual) 0 Promyelocytes % (Manual) 0 Blast Cells % (Manual) 0 Reactive Lymphocytes 0 Platelet Estimate Adequate Red Blood Cell Morphology Normal Prothrombin Time 9.8 9.3-11.8 sec Prothrombin Time INR 0.92 0.9-1.15 Activated Partial Thromboplast Time 26.8 24.5-34.5 SEC Urine Color Light-yellow Yellow Urine Clarity Clear Clear Urine pH 7.0 5.0-9.0 Urine Specific [place] 1.008 1.001-1.035 Urine Protein Negative Negative Urine Ketones Negative Negative Urine Blood 2+ H Negative /uL Urine Nitrite Negative Negative Urine Bilirubin Negative Negative Urine Urobilinogen Normal Negative mg/dL Urine Leukocyte Esterase 3+ Negative /uL Urine RBC 4 0 - 4 /hpf Urine Microscopic WBC 24 H 0-5 /HPF Urine Squamous Epithelial Cells Few <5 /hpf Urine Bacteria Few H None Seen /hpf Urine Glucose Normal Normal mg/dL Sodium Level 137 136-145 mmol/L Potassium Level 3.9 3.5-5.1 mmol/L Chloride Level 105 98-107 mmol/L Carbon Dioxide Level 21 20-31 mmol/L Anion Gap 11 5-15 Blood Urea Nitrogen 8 L 9-23 mg/dL Creatinine 0.83 0.550-1.02 mg/dL Glomerular Filtration Rate Calc 92 >90 mL/min BUN/Creatinine Ratio 9.6 L 10.0-20.0 Serum Glucose 100 74-106 mg/dL Calcium Level 9.7 8.7-10.4 mg/dL Total Bilirubin 0.6 0.2-1.0 mg/dL Aspartate Amino Transferase (AST) 21 13-40 U/L Alanine Aminotransferase (ALT) 19 7-40 U/L Alkaline Phosphatase 180 H 46-116 U/L Total Protein 6.6 5.7-8.2 g/dL Albumin 4.0 3.2-4.8 g/dL Urine Opiates Screen Neg NEGATIVE Urine Fentanyl Screen Neg NEGATIVE Urine Barbiturates Screen Neg NEGATIVE Urine Phencyclidine Screen Neg NEGATIVE Urine Amphetamines Screen Neg NEGATIVE Urine Benzodiazepines Screen Neg NEGATIVE Urine Cocaine Screen Neg NEGATIVE Urine Cannabinoids Screen Neg NEGATIVE Treponema pallidum Antibody Non-reactive Negative Assessment Assessment A: 39yo IUP@38.0wks Active Labor Category II EFM AROM, clear blood tinged GBS positive Plan Plan P: Expectant management for now due to frequent UCs Continue with IV PCN for GBS treatment Ampicillin and gentamicin IVPB ordered per Dr. Cullen. Continuous monitoring Pain mgmt - epidural Frequent position changes in bed with peanut ball encouraged Limit SVE unless necessary Intrauterine resuscitation PRN Anticipate Dr. Cullen consulted, agrees with POC. Plan discussed with: Patient, Other (family) Visit Coding OBGYN Date of Service: Dec 29, 2024 Billing Provider: BERLIN MAHMOOD CNM CLEARANCE CENTER MANAGER Common Visit Codes: [id number] INP/OBS CARE(HIGH) BERLIN MAHMOOD CNM Dec 29, 2024 23:23
[2024-12-30] VITALS (13 sets, daily range): BP systolic 81–111; BP diastolic 47–76; PULSE 65–101; RESP 16–18; TEMP 97.8–98.9; O2SAT 96–100
[2024-12-30] MEDS ORDERED: LACT. RINGERS/OXYTOCIN 20UNITS 500 ML IV ONE ×2 (01:00→01:30)
[2024-12-30] MEDS: ONDANSETRON HCL 4 MG/2 ML VIAL IV PRN (02:30)
--- NOTE | 2024-12-30 05:09 | DVHPN2 ---
[facility] Labor Progress Note Date and Time Seen Date Seen: Dec 30, 2024 Time Seen: 04:50 Subjective Subjective Comment Pt feels pain and pressure in her vagina. Objective Vital Signs VSS, see CPN Monitoring Method Monitoring Method: External Heart Rate Heart Rate Baseline: 150 Heart Rate Variability: Moderate Presence of FHR Accelerations: Yes Presence of FHR Decelerations: Yes Heart Rate Type of Decel: Early Deceleraions Comment on Trends or Patterns: maternal position changed Are all 5 Components of the FH: Yes Contractions Contractions Frequency: Other (q2-4 min) Duration of Contraction: 120 Contractions Intensity: Moderate Contractions Resting Tone: Relaxed Membranes Membranes: Ruptured Amniotic Fluid Color: Clear (blood tinged) Vaginal Exam Vag Exam Deferred: No (9.5/100/+1) Vaginal Exam Presentation: VTX Vaginal Exam Show: Small Medications Medications - Pitocin: No Medication - Epidural: Yes Lab Results Lab Results Vital Signs Date Time Temp Pulse Resp B/P (MAP) Pulse Ox O2 Delivery O2 Flow Rate FiO2 12/29/24 15:22 116/63 12/29/24 13:55 95 22 Current Medications Medications (Trade) Dose Ordered Sig/Lucita Start Time Stop Time Status Last Admin Dose Admin Morphine Sulfate 10 mg ONCE STAT 12/29/24 13:00 12/29/24 13:18 DC Morphine Sulfate 10 mg ONCE STAT 12/29/24 13:00 12/29/24 13:18 DC Ondansetron HCl (Zofran) 4 mg ONCE ONCE 12/29/24 13:00 12/29/24 13:11 DC 12/29/24 13:50 4 MG Lactated Ringer's 1,000 ml @ 1,000 mls/hr Q1H ONCE 12/29/24 13:00 12/29/24 13:59 DC 12/29/24 15:24 1,000 MLS/HR Morphine Sulfate 5 mg STAT STAT 12/29/24 13:16 12/29/24 13:33 DC 12/29/24 13:51 5 MG Morphine Sulfate 5 mg STAT STAT 12/29/24 13:16 12/29/24 13:34 DC 12/29/24 13:55 5 MG Naloxone HCl (Narcan) 0.2 mg PRN ONCE 12/29/24 13:45 12/29/24 13:49 DC Sodium Chloride 500 ml @ 500 mls/hr Q1H PRN 12/29/24 15:00 Naloxone HCl (Narcan) 0.2 mg PRN ONCE 12/29/24 15:00 12/29/24 15:04 DC Ephedrine Sulfate (ePHEDrine SULFATE) 10 mg PRN ONCE 12/29/24 15:00 12/29/24 15:04 DC Fentanyl Citrate 100 mcg ONCE ONCE 12/29/24 15:00 12/29/24 15:04 DC 12/29/24 15:22 100 MCG Lactated Ringer's 500 ml @ 500 mls/hr Q1H ONCE 12/29/24 15:00 12/29/24 15:59 DC Lidocaine/ Epinephrine (Xylocaine 1%-Mpf/ Epinephrine 1:200,000) 30 ml PRN ONCE 12/29/24 15:00 12/29/24 15:04 DC Fentanyl/ Ropivacaine 200 ml @ 0 mls/hr UD 12/29/24 15:00 12/31/24 14:59 Lidocaine HCl (Xylocaine) 5 ml ONCE ONCE 12/29/24 15:00 12/29/24 15:04 DC Lidocaine/ Epinephrine (Xylocaine-Mpf/ Epinephrine 1.5 %-1:[id number]) 10 ml ONCE ONCE 12/29/24 15:00 12/29/24 15:04 DC Lactated Ringer's 1,000 ml @ 125 mls/hr Q8H 12/29/24 15:30 12/29/24 20:20 125 MLS/HR Witch Madalyn (Tucks) 1 pad PRN PRN 12/29/24 15:30 12/29/24 22:46 1 PAD Sodium Lauryl Sulfate (Phisoderm) 240 ml PRN PRN 12/29/24 15:30 12/29/24 22:46 240 ML Benzocaine (Dermoplast) 1 applic PRN PRN 12/29/24 15:30 12/29/24 22:46 1 APPLIC Lidocaine HCl (Xylocaine) 20 ml ONCE PRN 12/29/24 15:30 Penicillin G Potassium 50 ml @ 100 mls/hr ONCE ONCE 12/29/24 15:45 12/29/24 16:14 DC 12/29/24 17:20 100 MLS/HR Penicillin G Potassium [id number] units/Dextrose 50 ml @ 100 mls/hr Q4H 12/29/24 19:45 12/29/24 18:18 DC Famotidine (Pepcid Injection) 20 mg Q12H 12/29/24 17:00 12/29/24 17:28 20 MG Ondansetron HCl (Zofran) 4 mg Q6HPRN PRN 12/29/24 20:00 12/30/24 02:30 4 MG Penicillin G Potassium [id number] units/Dextrose 50 ml @ 100 mls/hr Q4H 12/29/24 21:30 12/30/24 02:10 100 MLS/HR Cefazolin Sodium 50 ml @ 100 mls/hr Q8HR 12/29/24 22:00 12/29/24 20:44 DC Ampicillin Sodium 2 gm/Sodium Chloride 100 ml @ 100 mls/hr Q6H 12/29/24 20:45 12/30/24 03:30 100 MLS/HR Gentamicin Sulfate 0 ml @ 0 mls/hr PER PHARMACY 12/29/24 20:45 12/31/24 20:44 Acetaminophen (Tylenol Tablet) 650 mg Q4HP PRN 12/29/24 21:00 12/30/24 03:30 650 MG Gentamicin Sulfate 335 mg/ Dextrose 108.375 ml @ 99.885 mls/hr DAILY@2130 12/29/24 21:30 12/29/24 23:23 99.885 MLS/HR Oxytocin 500 ml @ 999 mls/hr Q31M ONCE 12/30/24 01:00 12/30/24 01:30 DC Oxytocin 500 ml @ 125 mls/hr Q4H ONCE 12/30/24 01:30 12/30/24 05:29 Laboratory Tests Test 12/29/24 15:15 Range/Units White Blood Count 22.5 H 4.4-10.8 10^3/uL Red Blood Count 3.50 L 4.0-5.20 10^6/uL Hemoglobin 10.8 L 12.2-16.2 g/dL Hematocrit 32.1 L 36.0-46.0 % Mean Corpuscular Volume 91.7 80.0-100.0 fL Mean Corpuscular Hemoglobin 30.9 28.0-32.0 pg Mean Corpuscular Hemoglobin Concent 33.7 32.0-36.0 g/dL Red Cell Distribution Width 14.1 11.8-14.3 % Platelet Count 231 140-450 10^3/uL Mean Platelet Volume 9.8 6.9-10.8 fL Neutrophils (%) (Auto) 37.0-80.0 % Lymphocytes (%) (Auto) 10.0-50.0 % Monocytes (%) (Auto) 0.0-12.0 % Basophils (%) (Auto) 0.0-2.0 % Neutrophils # (Auto) 1.6-8.6 10 ^3/uL Lymphocytes # (Auto) 0.4-5.4 10 ^3/uL Monocytes # (Auto) 0-1.3 10 ^3/uL Differential Total Cells Counted 100.0 100 Neutrophils % (Manual) 78 37.0-80.0 Band Neutrophils % (Manual) 10 Lymphocytes % (Manual) 6 L 10.0-50.0 Monocytes % (Manual) 6 0-12 Eosinophils % (Manual) 0 0-7 Basophils % (Manual) 0 0.0-2.0 Metamyelocytes % (manual) 0 Myelocytes % (Manual) 0 Promyelocytes % (Manual) 0 Blast Cells % (Manual) 0 Reactive Lymphocytes 0 Platelet Estimate Adequate Red Blood Cell Morphology Normal Prothrombin Time 9.8 9.3-11.8 sec Prothrombin Time INR 0.92 0.9-1.15 Activated Partial Thromboplast Time 26.8 24.5-34.5 SEC Urine Color Light-yellow Yellow Urine Clarity Clear Clear Urine pH 7.0 5.0-9.0 Urine Specific [place] 1.008 1.001-1.035 Urine Protein Negative Negative Urine Ketones Negative Negative Urine Blood 2+ H Negative /uL Urine Nitrite Negative Negative Urine Bilirubin Negative Negative Urine Urobilinogen Normal Negative mg/dL Urine Leukocyte Esterase 3+ Negative /uL Urine RBC 4 0 - 4 /hpf Urine Microscopic WBC 24 H 0-5 /HPF Urine Squamous Epithelial Cells Few <5 /hpf Urine Bacteria Few H None Seen /hpf Urine Glucose Normal Normal mg/dL Sodium Level 137 136-145 mmol/L Potassium Level 3.9 3.5-5.1 mmol/L Chloride Level 105 98-107 mmol/L Carbon Dioxide Level 21 20-31 mmol/L Anion Gap 11 5-15 Blood Urea Nitrogen 8 L 9-23 mg/dL Creatinine 0.83 0.550-1.02 mg/dL Glomerular Filtration Rate Calc 92 >90 mL/min BUN/Creatinine Ratio 9.6 L 10.0-20.0 Serum Glucose 100 74-106 mg/dL Calcium Level 9.7 8.7-10.4 mg/dL Total Bilirubin 0.6 0.2-1.0 mg/dL Aspartate Amino Transferase (AST) 21 13-40 U/L Alanine Aminotransferase (ALT) 19 7-40 U/L Alkaline Phosphatase 180 H 46-116 U/L Total Protein 6.6 5.7-8.2 g/dL Albumin 4.0 3.2-4.8 g/dL Urine Opiates Screen Neg NEGATIVE Urine Fentanyl Screen Neg NEGATIVE Urine Barbiturates Screen Neg NEGATIVE Urine Phencyclidine Screen Neg NEGATIVE Urine Amphetamines Screen Neg NEGATIVE Urine Benzodiazepines Screen Neg NEGATIVE Urine Cocaine Screen Neg NEGATIVE Urine Cannabinoids Screen Neg NEGATIVE Treponema pallidum Antibody Non-reactive Negative Assessment Assessment A: 39yo IUP@38.1wks Active Labor Category I EFM AROM, clear blood tinged GBS positive Plan Plan P: Labor down per Dr. Cullen's order Expectant management for now due to frequent UCs Continue with IV PCN for GBS treatment Continue Ampicillin and gentamicin IVPB. Continuous monitoring Pain mgmt - epidural Frequent position changes in bed with peanut ball encouraged Limit SVE unless necessary Intrauterine resuscitation PRN Anticipate Dr. Cullen consulted, agrees with POC. Plan discussed with: Patient, Other (family) Visit Coding OBGYN Date of Service: Dec 30, 2024 Billing Provider: BERLIN MAHMOOD CNM VAMPER Common Visit Codes: [id number] INP/OBS CARE(HIGH) BERLIN MAHMOOD CNM Dec 30, 2024 05:09
[2024-12-30] MEDS: ROPIVACAINE HCL 100 ML ONE (06:03)
--- NOTE | 2024-12-30 07:20 | DVHPN2 ---
Chief Complaints Patient reports: No new complaints Nursing reports: No new complaints Objective Vitals Vital Signs Date Time Temp Pulse Resp B/P (MAP) Pulse Ox O2 Delivery O2 Flow Rate FiO2 12/29/24 15:22 116/63 12/29/24 13:55 95 22 Medications Current Medications Medications (Trade) Dose Ordered Sig/Lucita Route PRN Reason Start Time Stop Time Status Last Admin Acetaminophen (Tylenol Tablet) 650 mg Q4HP PRN PO MILD PAIN (1-3 PAIN SCALE) 12/29/24 21:00 12/30/24 03:30 Ampicillin Sodium 1 gm/Sodium Chloride 100 ml @ 200 mls/hr Q8HR IV 12/30/24 11:30 Benzocaine (Dermoplast) 1 applic PRN PRN TOP PERINEAL AREA DISCOMFORT 12/29/24 15:30 12/29/24 22:46 Famotidine (Pepcid Injection) 20 mg Q12H IV 12/29/24 17:00 12/29/24 17:28 Fentanyl/ Ropivacaine 200 ml @ 0 mls/hr UD EPI 12/29/24 15:00 12/31/24 14:59 Gentamicin Sulfate 335 mg/ Dextrose 108.375 ml @ 99.885 mls/hr DAILY@2130 IV 12/29/24 21:30 12/29/24 23:23 Gentamicin Sulfate 0 ml @ 0 mls/hr PER PHARMACY IV 12/29/24 20:45 12/31/24 20:44 Lactated Ringer's 1,000 ml @ 125 mls/hr Q8H IV 12/29/24 15:30 12/30/24 05:13 Lidocaine HCl (Xylocaine) 20 ml ONCE PRN IJ PERINEAL AREA DISCOMFORT 12/29/24 15:30 Ondansetron HCl (Zofran) 4 mg Q6HPRN PRN IV NAUSEA / VOMITING 12/29/24 20:00 12/30/24 02:30 Penicillin G Potassium [id number] units/Dextrose 50 ml @ 100 mls/hr Q4H IV 12/29/24 21:30 12/30/24 06:24 Sodium Chloride 500 ml @ 500 mls/hr Q1H PRN IV FOR BP LESS THAN 90 12/29/24 15:00 Sodium Lauryl Sulfate (Phisoderm) 240 ml PRN PRN TOP PERINEAL AREA DISCOMFORT 7/22/25 15:30 12/29/24 22:46 Witlidia Bergman (Tucks) 1 pad PRN PRN TOP PERINEAL AREA DISCOMFORT 12/29/24 15:30 12/29/24 22:46 Others ve-10cm/+1 Studies Laboratory Tests 12/29/24 15:15 Test 12/29/24 15:15 Range/Units Serum Glucose 100 74-106 mg/dL Ass/Plan Assessment active labor Plan allow to labor down explained to pt possib of epis and vaccum if needed and pt agreed Visit Coding OBGYN Date of Service: Dec 30, 2024 Billing Provider: АННА AMIN DO LUMITE INJECTOR Common Visit Codes: [id number] INP/OBS CARE(HIGH), 46392-WAJ/OBS SAME DATE (LOW) LUMITE INJECTOR Procedure Codes: [id number] NON-STRESS TEST АННА AMIN DO Dec 30, 2024 07:20
[2024-12-30] MEDS: SUCCINYLCHOLINE CHLORIDE 20 MG/ML 10ML VIAL IV ONE (09:19)
[2024-12-30] MEDS ORDERED: PROPOFOL 10 MG/ML 20 ML IV ONE (09:23)
[2024-12-30] MEDS ORDERED: fentaNYL CITRATE 0 ML ONE (09:24)
[2024-12-30] MEDS ORDERED: HYDROmorphone HCL 2 MG/ML VL/or syr ONE (09:24)
[2024-12-30] MEDS ORDERED: ceFAZolin 1GM/50ML 50 ML IV SCH (09:30)
[2024-12-30] MEDS ORDERED: MORPHINE SULFATE 4 MG/ML SYR/VIAL IV PRN (09:30)
[2024-12-30] MEDS ORDERED: LACT. RINGERS/OXYTOCIN 20UNITS 1,000 ML IV ONE (09:30)
[2024-12-30] MEDS ORDERED: ONDANSETRON HCL 4 MG/2 ML VIAL IV PRN ×2 (09:30→11:00)
[2024-12-30] MEDS ORDERED: GUM (CHEWING) 1 GUM CHEW CHEW ONE (09:30)
--- NOTE | 2024-12-30 09:34 | DVHHP ---
ADMIT DATE: 12/30/2024 CHIEF COMPLAINT: Failure to descend. HISTORY OF PRESENT ILLNESS: The patient is a 39-year-old 2, para 0, with an EDC of 01/12, estimated gestational age of 38 weeks, admitted for rupture of membranes. The patient received Cytotec x 2 with Pitocin. Despite this, the baby remained at 0 station despite pushing adequately. Subsequently, the patient was taken for primary . Also noted was meconium while pushing, not on presentation, but while pushing. PAST MEDICAL HISTORY: None. PAST SURGICAL HISTORY: D and C. SOCIAL HISTORY: None. FAMILY HISTORY: None. OBSTETRIC AND GYNECOLOGIC HISTORY: Primigravid. REVIEW OF SYSTEMS: Consistent with HPI. PHYSICAL EXAMINATION: VITAL SIGNS: Stable, afebrile. HEENT: Within normal limits. CARDIOVASCULAR: Regular rate and rhythm. LUNGS: Clear to auscultation. BREASTS: Symmetrical. No masses. ABDOMEN: Gravid. PELVIC: 10 cm, 0 station, 100%. EXTREMITIES: No clubbing, cyanosis, or edema. IMPRESSION: * Intrauterine at 38+ weeks with spontaneous rupture of membranes, failure to progress, failure to descend. * AMA. * Meconium. PLAN: Primary low transverse section. Informed consent was obtained. Risks and complications of surgery including infection, bleeding, hematoma formation, injury to bowel or bladder, surrounding organ, possibility of DVT, pulmonary embolism and risks of anesthesia were discussed with the patient. Options reviewed. All questions answered. The patient fully understands. She wishes to proceed with planned procedure. DO JOHN PAUL James/LIZETTE TID: [id number] RECEIPT: [id number]
[2024-12-30] MEDS ORDERED: MORPHINE SULF PF 5 MG/10 ML VIAL ONE (09:37)
[2024-12-30] MEDS: BUPIVACAINE 0.75% INJ 10ML MPV SDV IJ ONE (09:39)
[2024-12-30] MEDS: CARBOPROST TROMETHAMINE 250 MCG/1ML VIAL IM ONE ×3 (10:08→10:32)
[2024-12-30] MEDS: DIPHENOXYLATE W/ATROPINE 2.5 MG TAB ONE ×2 (10:22)
[2024-12-30] MEDS ORDERED: ONDANSETRON HCL 4 MG/2 ML VIAL ONE (10:36)
[2024-12-30] MEDS: DIPHENOXYLATE W/ATROPINE 2.5 MG TAB PO PRN (10:56)
[2024-12-30] MEDS ORDERED: ONDANSETRON HCL 4 MG/2 ML VIAL IV ONE (11:00)
[2024-12-30] MEDS ORDERED: MEPERIDINE HCL (25 MG/ML) 1ML VIAL IV PRN (11:00)
[2024-12-30] MEDS ORDERED: ACETAMINOPHEN IV 1000 MG/100ML (10MG/ML) IV PRN (11:00)
[2024-12-30] MEDS ORDERED: HYDROmorphone HCL 2 MG/ML VL/or syr IV PRN ×2 (11:00)
[2024-12-30] MEDS ORDERED: diphenhdrAMINE HCL 50 MG/1 ML VL IV PRN (11:00)
[2024-12-30] MEDS ORDERED: NALOXONE HCL 0.4 MG/ML VIAL IV PRN (11:00)
[2024-12-30] MEDS: ACETAMINOPHEN IV 100 ML IV ONE (11:08)
[2024-12-30] MEDS: AMPICILLIN INJ 1 GM in SODIUM CHL 0.9% 100 ML IV SCH (12:06)
--- NOTE | 2024-12-30 14:15 | DVHOP2 ---
Operative Report DATE OF OPERATION: 12/30/24 PREOPERATIVE DIAGNOSES: iup at 38wks with failure to descend,mama,meconium POSTOPERATIVE DIAGNOSES:same ,op SURGEON: Jessica Cullen D.O./tereza ANESTHESIOLOGIST: celestine TYPE OF ANESTHESIA : spinal CONSENT: The patient was informed of the risks and benefits of the procedure. The patient was informed of the risks and benefits of the procedure. These include but are not limited to , complications of anesthesia, postoperative infection, incomplete relief of symptoms, recurrence of symptoms, damage to blood vessels, nerves and tendons, deep venous thrombosis, pulmonary embolism and possible need for repeat surgery in the future. FINDINGS: Baby [f] with Apgars of [8] and [9,op,meconium]. Grossly normal appearing tubes and ovaries. PROCEDURES: Primary low transverse section. PROCEDURE IN DETAIL: The patient was taken to the operating room. She already had an epidural in place. She was then placed in supine position with a leftward tilt. A Pfannenstiel skin incision was made 2 cm above the symphysis pubis. This incision was carried to the underlying layer of fascia. The fascia was nicked in the midline. The incision was extended laterally. The superior aspect of the fascial incision was grasped and elevated. The same procedure was done to the inferior aspect of the fascial incision. The rectus muscles were then in the midline. Peritoneum was identified and entered. Peritoneal incision was extended superiorly and inferiorly with good visualization of the bladder. Bladder blade was inserted. Vesicouterine peritoneum was identified and entered. Lower uterine segment was incised in a transverse fashion. The was delivered from vertex op pre sentation. was baby [f] with Apgars [8] and [9]. Placenta was then removed manually. Uterus was exteriorized and cleared of all clots and debris. The incision was repaired using 0 Vicryl in a double-layered fashion. No bleeding was noted. Uterus was then returned to the abdomen. The gutters were cleared off all clots and debris. Peritoneum was closed using 0 Vicryl, fascia was closed using 0 Maxon, and skin was closed using toni. The patient tolerated the procedure well. She was taken to the recovery room in stable condition. ESTIMATED BLOOD LOSS: Estimated blood loss was noted to be 1000 mL. Visit Coding OBGYN Date of Service: Dec 30, 2024 Billing Provider: JESSICA CULLEN DO WATER SOFTENER SERVICER Common Visit Codes: [id number] OBS CARE (HIGH) WATER SOFTENER SERVICER Procedure Codes: [id number] DELIVERY ONLY JESSICA CULLEN DO Dec 30, 2024 14:15
--- NOTE | 2024-12-30 14:16 | POSTOP ---
Post-Operative Note Post-Operative Note Preop Diagnosis iup at 38wks w/failure to descend,meconium ,op ,ama Postop Diagnosis: same Operation performed pltcs Specimen baby girl,apgars 8-9,op,mec Anesthesia: Regional Anesthesiologist: nuygen Blood Loss(fluid mgmt) 1000ml Surgeon Анна Cullen Napper Runner tereza Implant na Complications & Mgmt none Date 12/30/24 Time 14:15 Visit Coding OBGYN Date of Service: Dec 30, 2024 Billing Provider: АННА CULLEN DO REGULATORY PRODUCT MANAGER Common Visit Codes: [id number] OBS CARE (HIGH) REGULATORY PRODUCT MANAGER Procedure Codes: [id number] DELIVERY ONLY АННА CULLEN DO Dec 30, 2024 14:16
[2024-12-30] MEDS ORDERED: DOCU-94 PO (14:18)
[2024-12-30] MEDS ORDERED: HYDR-4072 PO (14:18)
[2024-12-30] MEDS ORDERED: IBUP-1456 PO ×2 (14:18→21:34)
[2024-12-30] MEDS: LIDOCAINE 2%HCL (LOCAL ANESTH.) INJ 10ml MDV IJ ONE (18:47)
[2024-12-30] MEDS: LIDOCAINE 1%-Mpf/Epinephrine 1:200,000 30ml VIAL IJ ONE (18:47)
[2024-12-30] MEDS: Lidocaine W-Epinephrine 1.5%-1:200,000 INJ 10ml Vial IJ ONE (18:48)
[2024-12-30] MEDS: LACTATED RINGER'S 500 ML IV ONE (18:55)
[2024-12-30] MEDS: NALBUPHINE HCL 10 MG/1ml INJECTION SUBCUT ONE (18:56)
[2024-12-30] MEDS: AMPICILLIN SOD 1 GM VL ONE (20:51)
[2024-12-30 21:11] LABS: Hematocrit 25.3 % (36.0-46.0); Hemoglobin 8.5 g/dL (12.2-16.2); Mean Corpuscular Hemoglobin 31.4 pg (28.0-32.0); Mean Corpuscular Volume 93.7 fL (80.0-100.0)
[2024-12-30] MEDS ORDERED: PREN-96 PO (21:34)
[2024-12-30 21:52] LABS: Total Cells Counted 100.0 (100)
[2024-12-30] MEDS: ceFAZolin 2 GM/D5W50ml 50 ML IV SCH (22:00)
[2024-12-30] MEDS ORDERED: CEFAZOLIN IV SCH (22:30)
[2024-12-30] MEDS ORDERED: [UNRECOGNIZED DRUG - OTHER] IV SCH (22:30)
[2024-12-30] MEDS: ACETAMINOPHEN IV 1000 MG/100ML (10MG/ML) IV PRN (23:03)
[2024-12-31] VITALS (8 sets, daily range): BP systolic 88–102; BP diastolic 49–66; PULSE 72–98; RESP 15–16; TEMP 97.6–98.5; O2SAT 94–100
--- NOTE | 2024-12-31 01:13 | DVHPN2 ---
Progress Note Date Seen: Dec 31, 2024 Subjective S: bleeding is less, advancing diet as tolerated, denies lightheaded/dizziness, pain controlled with medications, cazares catheter in place, no flatus/BM yet, and formula vital signs Vital Sign Date Time Temp Pulse Resp B/P (MAP) Pulse Ox O2 Delivery O2 Flow Rate FiO2 12/30/24 23:00 98.9 78 17 90/47 (61) 100 98.9 12/30/24 19:00 Room Air Total Intake and Output 12/30/24 12/30/24 12/31/24 15:00 23:00 07:00 Intake Total 1075 ml Output Total 50 ml 1525 ml Balance -50 ml -450 ml medications Current Medications Medications Dose Ordered Sig/Lucita Route Start Time Stop Time Status Last Admin Dose Admin Sodium Chloride 500 ml @ 500 mls/hr Q1H PRN IV 12/29/24 15:00 Cancel Fentanyl/ Ropivacaine 200 ml @ 0 mls/hr UD EPI 12/29/24 15:00 12/31/24 14:59 Cancel Lactated Ringer's 1,000 ml @ 125 mls/hr Q8H IV 12/29/24 15:30 12/30/24 19:09 125 MLS/HR Lidocaine HCl 20 ml ONCE PRN IJ 12/29/24 15:30 Cancel Famotidine 20 mg Q12H IV 12/29/24 17:00 12/30/24 19:09 20 MG Morphine Sulfate 2 mg Q4HP PRN IV 12/30/24 09:30 Cancel Ondansetron HCl 4 mg Q4HP PRN IV 12/30/24 09:30 Cancel Cefazolin Sodium 50 ml @ 100 mls/hr Q8H IV 12/30/24 09:30 12/31/24 01:59 Cancel Diphenhydramine HCl 25 mg Q4HP PRN IV 12/30/24 11:00 Ondansetron HCl 4 mg Q4HP PRN IV 12/30/24 11:00 Ketorolac Tromethamine 30 mg Q6HP PRN IV 12/30/24 11:00 01/04/25 10:59 Acetaminophen 1,000 mg Q8HPRN PRN IV 12/30/24 19:00 12/31/24 06:01 12/30/24 23:03 1,000 MG Cefazolin Sodium/ Dextrose 50 ml @ 50 mls/hr Q8HR IV 12/30/24 22:00 12/31/24 06:59 laboratory and microbiology Laboratory Tests 12/30/24 20:50 12/29/24 15:15 Test 12/29/24 15:15 Range/Units Serum Glucose 100 74-106 mg/dL Objective O: VSS Chest: heart sounds normal and lung sounds clear bilaterally Abd: soft, non-tender, fundus at U/firm/midline, active bowel sounds, no rebound or guarding Incision: sylke dressing open to air, clean/dry/intact Ext: Non-tender, No edema, 2+ BLE DTRs Lochia: minimal See lab results Problems(with codes): (1) Precipitous drop in hematocrit (2) S/P primary low transverse Assessment/Plan A/P: 39yo now PPD#1 s/p primary -Continue with routine post-op PP care Plan discussed with: Patient, Spouse, Other (family) Visit Coding OBGYN Date of Service: Dec 31, 2024 Billing Provider: BERLIN MAHMOOD CNM ERP ENGINEER Common Visit Codes: [id number] INP/OBS CARE(HIGH) BERLIN MAHMOOD CNM Dec 31, 2024 01:13
[2024-12-31 06:45] LABS: Hemoglobin 8.1 g/dL (12.2-16.2); Nucleated Red Blood Cells % 0.0 %
[2024-12-31 06:48] LABS: Hematocrit 23.6 % (36.0-46.0); Mean Corpuscular Hemoglobin 31.8 pg (28.0-32.0); Mean Corpuscular Volume 92.4 fL (80.0-100.0)
[2024-12-31] MEDS ORDERED: ceFAZolin 2 GM/D5W50ml 50 ML IV SCH (07:30)
[2024-12-31] MEDS: ceFAZolin 2 GM/D5W50ml 50 ML IV SCH (08:50)
[2024-12-31] MEDS: KETOROLAC TROMETH 30 MG/ML 1ML VIAL IV PRN (09:13)
[2024-12-31] MEDS ORDERED: HYDROcodone-ACET 5/325MG TAB PO PRN (11:30)
[2024-12-31] MEDS ORDERED: FER325T PO (11:48)
[2024-12-31] MEDS: SIMETHICONE 80 MG CHEWABLE TABLET PO SCH (13:47)
[2024-12-31] MEDS: IBUPROFEN 800 MG TAB PO PRN (13:47)
[2024-12-31] MEDS: DOCUSATE SOD 100 MG CAP PO SCH (22:24)
[2025-01-01] MEDS: HYDROcodone-ACET 5/325MG TAB PO PRN (00:35)
--- NOTE | 2025-01-01 00:45 | DVHPN2 ---
Progress Note Date Seen: Jan 01, 2025 Subjective Patient is worried about having pre-eclampsia because her legs are swollen and she has gallstones -Lochia minimal -Regular diet well tolerated. -Ambulating and voiding well w/o feeling dizzy or lightheaded -Pain relieved with oral medication PRN -Passing flatus but no BM yet. -Bottlefeeding w/o problem - Contraceptive plan: Condoms -Desires and requests to be discharged home today (01/01) vital signs Vital Sign Date Time Temp Pulse Resp B/P (MAP) Pulse Ox O2 Delivery O2 Flow Rate FiO2 12/31/24 23:00 97.6 82 16 98/64 (75) 100 97.6 12/31/24 19:30 Room Air Total Intake and Output 12/31/24 12/31/24 01/01/25 15:00 23:00 07:00 Output Total 2300 ml Balance -2300 ml medications Current Medications Medications Dose Ordered Sig/Lucita Route Start Time Stop Time Status Last Admin Dose Admin Sodium Chloride 500 ml @ 500 mls/hr Q1H PRN IV 12/29/24 15:00 Cancel Fentanyl/ Ropivacaine 200 ml @ 0 mls/hr UD EPI 12/29/24 15:00 12/31/24 14:59 Cancel Lactated Ringer's 1,000 ml @ 125 mls/hr Q8H IV 12/29/24 15:30 12/31/24 05:17 125 MLS/HR Lidocaine HCl 20 ml ONCE PRN IJ 12/29/24 15:30 Cancel Morphine Sulfate 2 mg Q4HP PRN IV 12/30/24 09:30 Cancel Ondansetron HCl 4 mg Q4HP PRN IV 12/30/24 09:30 Cancel Cefazolin Sodium 50 ml @ 100 mls/hr Q8H IV 12/30/24 09:30 12/31/24 01:59 Cancel Docusate Sodium 100 mg Q12HR PO 12/31/24 22:00 12/31/24 22:24 100 MG Dimethicone 80 mg QID PO 12/31/24 12:00 12/31/24 22:24 80 MG Ibuprofen 800 mg Q8HP PRN PO 12/31/24 11:30 12/31/24 22:24 800 MG Acetaminophen/ Hydrocodone Bitart 1 tab Q4HPRN PRN PO 12/31/24 11:30 Acetaminophen/ Hydrocodone Bitart 2 tab Q4HPRN PRN PO 12/31/24 11:30 01/01/25 00:35 2 TAB laboratory and microbiology Laboratory Tests 12/31/24 06:13 12/29/24 15:15 Test 12/29/24 15:15 Range/Units Serum Glucose 100 74-106 mg/dL Objective -A&O x4. No apparent distress. Affect appropriate -Afebrile, VSS -Chest: heart and lung sounds normal. -Breasts: Nipples intact w/o cracks or soreness -Abdomen: normal BS, soft, non-tender, no rebound or guarding, fundus firm @ U- 1, -Lower abdominal incision site with dressing dry and intact. No edema, erythema or induration -Extremities: mild edema bilaterally, no tenderness Problems(with codes): (1) S/P primary low transverse (2) Precipitous drop in hematocrit Assessment/Plan ASSESSMENT 39 yo now Post operative & ppd # 2 s/p Primary Section for arrest of descent, doing well. Blood Type: O+ Bottle feeding Rubella Immune PLAN -Continue pain management with oral medications as previously ordered -Increase fluid intake and fiber in diet to promote regular bowel movements, Laxative PRN -Discussed normal swelling and ways to alleviate. Extensively discussed pre-eclampsia warning signs and ways to monitor at home. Empathetic listening utilized and patient reassured that her BP is stable at this time -Educated patient on self-care and warning signs to watch for, including PPH, PPD, and pre-eclampsia -Continue routine care and anticipate discharge today Plan discussed with: Patient, Spouse, Other (family) Visit Coding OBGYN Date of Service: Jan 01, 2025 Billing Provider: ROSY SALMON CNM MANAGER INSPECTION Common Visit Codes: [id number] INP/OBS CARE(HIGH) ROSY SALMON CNM Jan 01, 2025 00:45
--- NOTE | 2025-01-01 00:48 | DVHDS2 ---
Obstetrics Discharge Summary Obstetrics Discharge Summary Date of Admission: Dec 29, 2024 Date of Discharge: Jan 01, 2025 Reason For Admission: Onset of Labor Intrapartum Procedures: (Low Cervical Transverse) Procedures: Hct/date: (23.6), Hgb/date: (8.1) Discharge Diagnosis: Term -Delivered Discharge Information: Activity (Unrestricted. Advance as tolerated. Balance activities with rest periods. No heavy lifting, pushing or straining. Pelvic rest x 6 weeks), Diet (Routine regular diet rich in fiber, protein, iron and vitamin C with adequate fluid intake.), Medications (See Medication List), Instructions (Routine), Discharge to (Home), Discarge date (01/01/25) Discharge Care Plan Instructions - self care instructions given - emergency signs and symptoms including but not limited to pre-eclampsia precautions and signs of infection, PPH & of PPD reviewed with patient. -Follow up with OB Provider in 1 week. Subsequent appointments will be made at that time Visit Coding OBGYN Date of Service: Jan 01, 2025 Billing Provider: ROSY SALMON CNM BARREL TESTER Common Visit Codes: [id number]/[id number] DISCH DAY >30MIN ROSY SALMON CNM Jan 01, 2025 00:48
[2025-01-01 03:15] VITALS: BP 97/53; PULSE 76; RESP 18; TEMP 98.1; O2SAT 95
[2025-01-01 07:15] VITALS: BP 99/58; PULSE 75; RESP 18; TEMP 97.8; O2SAT 97
[2025-01-01 10:30] VITALS: TEMP 97.8
[2025-01-01] MEDS: WITCH HAZEL-GLYCERIN PAD TOP PRN (14:30)
[2025-01-01] MEDS: DERMOPLAST 60ML BOTTLE TOP PRN (14:31)
== END 2025-01-01 15:10 | disposition home or self-care (01) | DRG 540 ==
LOC: LDRP 11:15 → OBSVTOIN 14:45 → LDRP 12-30 09:33
PROVIDERS: ADMIT Obstetrics & Gynecology; ATTEND Obstetrics & Gynecology
PROC: 10D00Z1 Extraction of Products of Conception, Low, Open Approach (ICD-10-PCS; principal; 2024-12-30 09:41)
DX: O32.4XX0 Maternal care for high head at term, not applicable or unspecified (principal); O41.1230 Chorioamnionitis, third trimester, not applicable or unspecified; K80.20 Calculus of gallbladder without cholecystitis without obstruction; O77.0 Labor and delivery complicated by meconium in amniotic fluid; O99.02 Anemia complicating childbirth; Z3A.38 38 weeks gestation of pregnancy; Z37.0 Single live birth; O76 Abnormality in fetal heart rate and rhythm complicating labor and delivery; O62.1 Secondary uterine inertia
CPT/HCPCS: 36415; 76805; 80053; 80307; 81001; 82565; 85007; 85025; 85027; 85610; 85730; 86780; 86850; 86900; 86901; 94760; 94762; 96360; 96361; 96365; 96366; 96372; 96374; 96375; G0378; J0131; J0330; J1885; J2405; J2540; J2590; J2704; J3490; J7060

== ENCOUNTER 2025-02-02 21:28 | Emergency (ER) | payer MEDICAID ==
[~2025-02-02] VITALS: Ht 165.1 cm; Wt 69.8 kg
[~2025-02-02 21:28] MED LIST changes: +DOCU-94 PO; +FER325T PO; +HYDR-4072 PO; +IBUP-1456 PO; -LEVO500T31 PO; -NIC21P TOP; +PREN-96 PO; -TRAM50TA2 PO
[2025-02-02 23:03] LABS: Hematocrit 33.4 % (36.0-46.0); Hemoglobin 10.9 g/dL (12.2-16.2); Mean Corpuscular Hemoglobin 29.6 pg (28.0-32.0); Mean Corpuscular Volume 90.7 fL (80.0-100.0); Nucleated Red Blood Cells % 0.0 %
[2025-02-02 23:17] LABS: Alanine Aminotransferase 27 U/L (7-40); Albumin 4.3 g/dL (3.2-4.8); Anion Gap 9 (5-15); BUN/Creatinine Ratio 6.1 (10.0-20.0); Bilirubin, Total 0.5 mg/dL (0.2-1.0); Calcium 9.2 mg/dL (8.7-10.4); Carbon Dioxide 26 mmol/L (20-31); Chloride 106 mmol/L (98-107); Glucose 93 mg/dL (74-106); Lipase 36 U/L (12-53); Potassium 3.8 mmol/L (3.5-5.1); Sodium 141 mmol/L (136-145); Total Protein 7.1 g/dL (5.7-8.2)
[2025-02-02 23:18] LABS: Alkaline Phosphatase 158 U/L (46-116); Blood Urea Nitrogen 7 mg/dL (9-23)
[2025-02-02 23:42] LABS: Urine Protein, UAD TRACE (Negative)
--- NOTE | 2025-02-02 23:51 | DVH ---
RIGHT UPPER QUADRANT ABDOMINAL ULTRASOUND CLINICAL HISTORY: RUQ PAIN COMPARISON: US OB ULTRASOUND COMP GTR 14 WKS on DOS: 12/29/24 TECHNIQUE: Grayscale and color Doppler ultrasound imaging of the right upper quadrant is performed. FINDINGS: Pancreas: The visible portion is grossly unremarkable. Liver: Measures 18.6 cm in length. No discrete Hepatic lesions as visualized. The portal vein appear s patent. Gallbladder: Distended. Multiple mobile gallstones noted. No gallbladder wall thickening. No sonograp hic clemente's sign. Common bile duct: Dilated to approximately 7.1 mm. No sizable, shadowing intraductal lesions identifi ed within the imaged portions. Right Kidney: Measures 9.4 cm in length. No hydronephrosis. Right upper quadrant Inferior vena cava: Unremarkable. IMPRESSION: Cholelithiasis with gallbladder distention. No wall thickening or sonographic clemente's sign elicited . Findings are equivocal for cholecystitis. Dilated common bile duct. Distal ductal obstruction not excluded. MRCP may be obtained to further vinh luate.
--- NOTE | 2025-02-03 00:15 | ED.PDOC ---
GI ASSESSMENT HPI Comments HPI: 40 year old female presents to the emergency department with a chief complaint of abdominal pain onset (02/02/25). Patient was eating dinner, hot dog with milk, when she began experiencing epigastric pain radiates to RUQ and back. Patient had a 4 weeks ago, was told she had gallstones. Shortly after pain began, she experienced an episode of nausea/vomiting. She took hydrocodone about 6 hours ago. Denies dizziness, chest pain, shortness of breath, hematuria, dysuria, hematemesis, fever, chills. No other symptoms or modifying factors present at this time. Patient refused medication, stated symptoms have improved, does not need medication. Initial Vitals BP: 130/71 HR: 87 RR: 16 O2: 100% Temp: 98.7 F Past Medical History: Denies Past Surgical History: Social History: Denies ETOH, smoking, and drug use. Medications: Denies Allergies: NKDA Graf, Epig pain n/v HPI: Poor Historian. REVIEW OF SYSTEMS: CONSTITUTIONAL: Denies acute: fever, diaphoresis, chills, generalized weakness. HEAD: Denies acute: headache, photophobia Eyes: Denies acute: Double vision, vision loss, eye pain, eye discharge. EARS: Denies acute: tinnitus, hearing loss, ear discharge, ear pain, THROAT: Denies acute: sore throat, swelling, difficulty swallowing , pain with swallowing, change in voice. NECK: Denies acute: neck pain, neck swelling, stiff neck. HEART: Denies acute : chest pain, palpitations, LUNGS: Denies acute: SOB, wheezing, cough, hemoptysis ABDOMEN: Denies acute: diarrhea, melena , hematemesis, hematochezia SKIN: Denies acute: rash, redness, lesions, itchiness. EXTREMITIES: Denies acute: calf pain, numbness, tingling, weakness, denies pain in extremity. Denies acute: Low back pain. Neuro: Denies acute: focal neurological deficit, motor or sensory focal neurological deficit, tremors, seizure like activity, confusion, dizziness, change in mental status, loss of bowel or bladder function, cauda equina like symptoms. : Denies acute: dysuria, hematuria, flank pain, increase in urinary frequency. PSYCH: Denies acute: hallucination, suicidal ideation, homicidal ideation. FEMALE: Denies acute: abnormal vaginal bleeding, foul odor, unusual discharge. PHYSICAL EXAM: General: ----mild----acute distress, awake and alert. Head: normocephalic, atraumatic. Neck: supple, trachea is midline, no swelling. Throat: Normal phonation. Eyes:, no erythema, no purulent discharge, no proptosis, no icterus. Heart: regular rate, regular rhythm, no significant murmur appreciated. Lungs: no apparent respiratory distress, Able to speak in full sentences. No wheezing, no rhonchi, no crackles. No stridors Clear to auscultation bilaterally. Abdomen: Epigastric tender to palpation, non distended, soft, no guarding, no rebound, + bowel sounds. Patient has surgical scar from recent appears normal intact without any signs of infection. Neuro: Awake, Alert, oriented to name, self, situation, follows commands GCS=15. Speech is normal. Skin: no petechia, no purpura, no cyanosis, non-pale, not jaundice. Lower extremities: --no - Pitting edema no deformity, no focal swelling, no calf TTP. Makes eye contact. moves all four extremities. Face: no apparent facial droop. Ambulating in the ED independently. ED COURSE: DISCLAIMER: This medical document was created using an electronic medical record system with voice recognition software and computerized dictation system. Although this document has been carefully reviewed, there might still be some phonetic and t ypographical errors. Occasional wrong-word or "sound-alike" substitutions may have occurred due to the inherent limitations of voice recognition software. These areas are purely typographical due to imperfections of the software programs and do not reflect any compromise in the patient's medical care. Please read the chart carefully and recognize, using context, where these substitutions have occurred. Chief Complaint: Abdominal Pain Time Seen by MD: 00:05 Primary Care Provider: none Reviewed Notes: Medications, Allergies Allergies: Coded Allergies: NO KNOWN ALLERGIES (Unverified , 12/18/09) Home Meds Active Scripts Ondansetron Odt 4MG Tab (ZOFRAN PO) 4 Mg Tb, 4 MG PO Q8HPRN PRN for 3 Days, #9 TAB ODT TAB-DISSOLVE IN MOUTH, THEN SWALLOW Prov:TIFFANIE ESPOSITO 02/03/25 Nitrofurantoin Monohydrate Mac (Macrobid) 100 Mg Cap, 100 MG PO BID for 7 Days, #14 CAP Prov:TIFFANIE ESPOSITO DO 02/03/25 Ferrous Sulfate (FERROUS SULFATE) 325 Mg Tb, 1 TAB PO DAILY, #30 TAB 3 Refills Prov:[facility]IE [facility] 12/31/24 Vit W/ Ferrous Fumara ( One Daily) Daily Tab, 1 TAB PO DAILY, #90 TAB 3 Refills Prov:NIEVESDanayTEDDYSTARRBRANDIE [facility] 12/30/24 Ibuprofen (Ibuprofen) 800 Mg Tab, 800 MG PO TID PRN for 30 Days, #90 TAB Prov:GERTRUDEMASTERASHWINSTARRBRANDIE [facility] 12/30/24 Hydrocodone-Acetaminophen (Hydrocodone/Acetaminophen 10-325 mg) 1 Tab Tab, 1 TAB PO Q6HPRN PRN for 7 Days, #28 TAB Prov:АННА AMIN 12/30/24 Docusate Sodium (Colace) 100 Mg Cap, 1 CAP PO BID, #60 CAP 2 Refills Prov:АННА AMIN 12/30/24 Information Source: Patient Mode of Arrival: Ambulatory Timing: Hours Duration: Since onset Prehospital treatment: Pain Meds ([place]) Quality: Sharp Severity: Moderate Recent: None Recent Hx of: None Pain Location: Epigastric, RUQ Modifying Factors: Nothing Associated sign and symptoms: Nausea, Vomiting, Abdominal Pain Past Medical History PAST MEDICAL HISTORY: Denies 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 Was a procedure done?: No GI differential Dx Differential Diagnosis: Other (DDX include Diverticulitis, colitis, deya roenteritis, acute abdomen, SBO, enteritis, constipation, volvulus, appendicitis, Gallbladder disease, choledocolithiasis, ascending cholangitis, pancreatitis, intraAbdominal mass/neoplasm, hepatitis, UTI, pylonephritis, kidney stone, aneurysm, dissection, Inflammatory bowel disease, gastroparesis, ischemic bowel, ovarian torsion, ovarian cyst/mass, tubo-ovarian abscess, , ectopic , PID, STD.) X-Ray, Labs, Meds, VS Vital Signs Date Time Temp Pulse Resp B/P (MAP) Pulse Ox O2 Delivery O2 Flow Rate FiO2 02/03/25 03:13 78 20 99 Room Air 02/03/25 02:00 97.8 78 18 124/68 (86) 98 97.8 02/02/25 21:30 98.7 87 16 130/71 100 98.7 Lab Test 02/02/25 23:20 02/02/25 22:46 Range/Units Urine Color Yellow Yellow Urine Clarity Turbid H Clear Urine pH 7.0 5.0-9.0 Urine Specific Chloe 1.024 1.001-1.035 Urine Protein Trace H Negative Urine Ketones Negative Negative Urine Blood Negative Negative /uL Urine Nitrite Negative Negative Urine Bilirubin Negative Negative Urine Urobilinogen Normal Negative mg/dL Urine Leukocyte Esterase 1+ Negative /uL Urine RBC 6 0 - 4 /hpf Urine Microscopic WBC 7 H 0-5 /HPF Urine Squamous Epithelial Cells Mod <5 /hpf Urine Bacteria None seen None Seen /hpf Urine Mucus Few None Seen Urine Glucose Normal Normal mg/dL White Blood Count 11.6 H 4.4-10.8 10^3/uL Red Blood Count 3.69 L 4.0-5.20 10^6/uL Hemoglobin 10.9 L 12.2-16.2 g/dL Hematocrit 33.4 L 36.0-46.0 % Mean Corpuscular Volume 90.7 80.0-100.0 fL Mean Corpuscular Hemoglobin 29.6 28.0-32.0 pg Mean Corpuscular Hemoglobin Concent 32.7 32.0-36.0 g/dL Red Cell Distribution Width 14.8 H 11.8-14.3 % Platelet Count 292 140-450 10^3/uL Mean Platelet Volume 8.0 6.9-10.8 fL Neutrophils (%) (Auto) 71.4 37.0-80.0 % Lymphocytes (%) (Auto) 21.5 10.0-50.0 % Monocytes (%) (Auto) 6.5 0.0-12.0 % Eosinophils (%) (Auto) 0.4 0.0-7.0 % Basophils (%) (Auto) 0.2 0.0-2.0 % Neutrophils # (Auto) 8.3 1.6-8.6 10 ^3/uL Lymphocytes # (Auto) 2.5 0.4-5.4 10 ^3/uL Monocytes # (Auto) 0.8 0-1.3 10 ^3/uL Eosinophils # (Auto) 0 0-0.8 10 ^3/uL Basophils # (Auto) 0 0-0.2 10 ^3/uL Nucleated Red Blood Cells 0.0 % Sodium Level 141 136-145 mmol/L Potassium Level 3.8 3.5-5.1 mmol/L Chloride Level 106 98-107 mmol/L Carbon Dioxide Level 26 20-31 mmol/L Anion Gap 9 5-15 Blood Urea Nitrogen 7 L 9-23 mg/dL Creatinine 1.15 H 0.550-1.02 mg/dL Glomerular Filtration Rate Calc 62 >90 mL/min BUN/Creatinine Ratio 6.1 L 10.0-20.0 Serum Glucose 93 74-106 mg/dL Lactic Acid Level 1.1 0.4-2.0 mmol/L Calcium Level 9.2 8.7-10.4 mg/dL Total Bilirubin 0.5 0.2-1.0 mg/dL Aspartate Amino Transferase (AST) 34 13-40 U/L Alanine Aminotransferase (ALT) 27 7-40 U/L Alkaline Phosphatase 158 H 46-116 U/L Troponin I High Sensitivity < 3 L </=34 ng/L Total Protein 7.1 5.7-8.2 g/dL Albumin 4.3 3.2-4.8 g/dL Lipase 36 12-53 U/L [place] [address] Ph: [phone] DIAGNOSTIC IMAGING Diagnostic Imaging Report : [id number] Signed PATIENT: SUNIL GRAF ACCT: [id number] UNIT: [id number] : 1985 LOC: ER ROOM / BED: / AGE / SEX: 40 / F ADM STATUS: REG ER SERVICE 32 ORDERING PHYSICIAN: TIFFANIE ESPOSITO DO PROCEDURE(s): ABDL - ABDOMEN LIMITED REASON: RUQ PAIN ORDER NUMBER(s): [id number], ACCESSION NUMBER(s): [id number] RIGHT UPPER QUADRANT ABDOMINAL ULTRASOUND CLINICAL HISTORY: RUQ PAIN COMPARISON: US OB ULTRASOUND COMP GTR 14 WKS on DOS: 12/29/24 TECHNIQUE: Grayscale and color Doppler ultrasound imaging of the right upper quadrant is performed. FINDINGS: Pancreas: The visible portion is grossly unremarkable. Liver: Measures 18.6 cm in length. No discrete Hepatic lesions as visualized. The portal vein appears patent. Gallbladder: Distended. Multiple mobile gallstones noted. No gallbladder wall thickening. No sonographic clemente's sign. Common bile duct: Dilated to approximately 7.1 mm. No sizable, shadowing intraductal lesions identified within the imaged portions. Right Kidney: Measures 9.4 cm in length. No hydronephrosis. Right upper quadrant Inferior vena cava: Unremarkable. IMPRESSION: Cholelithiasis with gallbladder distention. No wall thickening or sonographic clemente's sign elicited. Findings are equivocal for cholecystitis. Dilated common bile duct. Distal ductal obstruction not excluded. MRCP may be obtained to further evaluate. ATED BY: LAZARO OLIVA MD DICTATED DATE/TIME: 02/02/252347 SIGNED BY: LAZARO OLIVA MD SIGNED DATE/TIME: 02/02/252347 CC: Time of 1ST Reevaluation: 00:35 Reevaluation 1ST: Unchanged Patient Education/Counseling: Diagnosis, Treatment Family Education/Counseling: No Family Present Comments MDM: patient presented with the above HPI.----abdominal pain--workup was initiated. patient was found with the above mentioned diagnosis. the following medications were ordered: please refer to order lists of meds and tests obtained by myself Dr. Esposito. Patient ED course and VS have been stabilized. Patient has been reassessed in th e ED and remained in a stable condition. Pertinent incidental findings were discussed with the patient and/or family. Patient/family voices understanding and is agreeable with plan. Patient has been observed in the ED adequate length of time to insure improvement/stability. Escalation of care considered: Consideration of escalation to observation or admission Patient was DISCHARGED home in a stable condition. All the reports of any imaging studies that were ordered by myself were reviewed by myself. Departure 1 Departure Time of Disposition: 02:22 Impression: Primary Impression: Urinary tract infection Additional Impressions: Cholelithiasis Epigastric pain Disposition: 01 HOME / SELF CARE / HOMELESS Condition: Stable Additional Instructions: Additional instructions: Please read all instructions provided in this packet carefully. You MUST follow-up with your primary care/family doctor in 1 to 2 days. If you are unable to see your primary care/family doctor, please return to our emergency room for re-assessment and re-evaluation in 1 to 2 days. Return to the emergency room here in our facility or to the nearest ER IMANI if your symptoms change or worsen. CONSULTATIONS: you MUST Follow-up for consultation as soon as possible with: -gastroenterology and general surgery in 1-2 days. Please call for appointme nt. You MUST call the consultants office yourself to make an appointment. You may need to arrange that through your insurance and/or your primary/family doctor. If you are unable to see the freight traffic consultant in 1 to 2 days, you must return to our emergency room (or any other ER of your choice) for re-assessment and re- evaluation. Adequate fluid hydration. Although you have been discharged from the Emergency Department, this does not mean that you have a "clean bill of health". No definitive diagnosis for your symptoms has been made today. It is possible that you are in the process of developing a serious illness. This is why you must return to the ED without fail if any new or worsening symptoms develop. Avoid fatty greasy spicy food. Avoid caffeinated products. Avoid NSAIDs. Below is a copy of your radiological report for follow up: [place] [address] Ph: [phone] DIAGNOSTIC IMAGING Diagnostic Imaging Report : [id number] Signed PATIENT: SUNIL GRAF ACCT: [id number] UNIT: [id number] : 1985 LOC: ER ROOM / BED: / AGE / SEX: 40 / F ADM STATUS: REG ER SERVICE 32 ORDERING PHYSICIAN: TIFFANIE ESPOSITO DO PROCEDURE(s): ABDL - ABDOMEN LIMITED REASON: RUQ PAIN ORDER NUMBER(s): [id number], ACCESSION NUMBER(s): [id number] RIGHT UPPER QUADRANT ABDOMINAL ULTRASOUND CLINICAL HISTORY: RUQ PAIN COMPARISON: US OB ULTRASOUND COMP GTR 14 WKS on DOS: 12/29/24 TECHNIQUE: Grayscale and color Doppler ultrasound imaging of the right upper quadrant is performed. FINDINGS: Pancreas: The visible portion is grossly unremarkable. Liver: Measures 18.6 cm in length. No discrete Hepatic lesions as visualized. The portal vein appears patent. Gallbladder: Distended. Multiple mobile gallstones noted. No gallbladder wall thickening. No sonographic clemente's sign. Common bile duct: Dilated to approximately 7.1 mm. No sizable, shadowing intraductal lesions identified within the imaged portions. Right Kidney: Measures 9.4 cm in length. No hydronephrosis. Right upper quadrant Inferior vena cava: Unremarkable. IMPRESSION: Cholelithiasis with gallbladder distention. No wall thickening or sonographic clemente's sign elicited. Findings are equivocal for cholecystitis. Dilated common bile duct. Distal ductal obstruction not excluded. MRCP may be obtained to further evaluate. ATED BY: LAZARO OLIVA MD DICTATED DATE/TIME: 02/02/252347 SIGNED BY: LAZARO OLIVA MD SIGNED DATE/TIME: 02/02/252347 CC: e-Prescriptions Ondansetron Odt 4MG Tab (ZOFRAN PO) 4 Mg Tb 4 MG PO Q8HPRN PRN for 3 Days, #9 TAB ODT TAB-DISSOLVE IN MOUTH, THEN SWALLOW Prov: TIFFANIE ESPOSITO DO 02/03/25 Nitrofurantoin Monohydrate Mac (Macrobid) 100 Mg Cap 100 MG PO BID for 7 Days, #14 CAP Prov: TIFFANIE ESPOSITO DO 02/03/25 Discharged With: Self Critical Care Note Critical Care Time?: No I personally scribed for TIFFANIE ESPOSITO DO ([email or web address]) on 02/03/25 at 00:15. Electronically submitted by Nohemy Domínguez ([email or web address]). I personally scribed for TIFFANIE ESPOSITO DO ([email or web address]) on 02/03/25 at 02:25. Electronically submitted by Nohemy Domínguez ([email or web address]). TIFFANIE ESPOSITO DO Feb 03, 2025 00:15
[2025-02-03 02:00] VITALS: BP 124/68; TEMP 97.8
[2025-02-03] MEDS ORDERED: NITR-87 PO (02:24)
[2025-02-03] MEDS ORDERED: ZOFR4T PO (02:24)
[2025-02-03] MEDS: SUCRALFATE 1 GM TAB PO ONE (02:29)
[2025-02-03] MEDS: PANTOPRAZOLE 40 MG TAB PO ONE (02:29)
[2025-02-03] MEDS: LIDOCAINE VISCOUS 2% 15ML UD PO ONE (02:29)
[2025-02-03 03:13] VITALS: PULSE 78; RESP 20; O2SAT 99
== END 2025-02-03 03:15 | disposition home or self-care (01) ==
LOC: ER 21:28
DX: N39.0 Urinary tract infection, site not specified (principal); K80.20 Calculus of gallbladder without cholecystitis without obstruction; R10.13 Epigastric pain; Z79.899 Other long term (current) drug therapy
CPT/HCPCS: 36415; 76705; 80053; 81001; 83605; 83690; 84484; 85025

== ENCOUNTER 2025-02-14 21:30 | Inpatient (IN) | payer MEDICAID ==
[~2025-02-14] VITALS: Ht 165.1 cm; Wt 70.1 kg
[~2025-02-14 21:30] MED LIST changes: +NITR-87 PO; +ZOFR4T PO
--- NOTE | 2025-02-15 00:04 | ED.PDOC ---
History of Present Illness HPI Comments 40 y/o F, with a history of gallstones and , presents with significant other for c/c epigastric abdominal pain. Patient reports ongoing pain that she was seen and evaluated for at ED, last week. Pain goes to her back. She states on being told, last time, on having gallstones. Notable recent . Denial of any nausea, vomiting, or further associated symptoms. Chief Complaint: Abdominal Pain Time Seen by MD: 23:50 Primary Care Provider: none Reviewed Notes: Nurses Notes, Medications, Allergies Allergies: Coded Allergies: NO KNOWN ALLERGIES (Unverified , 12/18/09) Home Meds Active Scripts Ondansetron Odt 4MG Tab (ZOFRAN PO) 4 Mg Tb, 4 MG PO Q8HPRN PRN for 3 Days, #9 TAB ODT TAB-DISSOLVE IN MOUTH, THEN SWALLOW Prov:TIFFANIE ESPOSITO DO 02/03/25 Nitrofurantoin Monohydrate Mac (Macrobid) 100 Mg Cap, 100 MG PO BID for 7 Days, #14 CAP Prov:TIFFANIE ESPOSITO 02/03/25 Ferrous Sulfate (FERROUS SULFATE) 325 Mg Tb, 1 TAB PO DAILY, #30 TAB 3 Refills Prov:BERLIN MAHMOOD [facility] 12/31/24 Vit W/ Ferrous Fumara ( One Daily) Daily Tab, 1 TAB PO DAILY, #90 TAB 3 Refills Prov:BERLIN MAHMOOD [facility] 12/30/24 Ibuprofen (Ibuprofen) 800 Mg Tab, 800 MG PO TID PRN for 30 Days, #90 TAB Prov:BERLIN MAHMOOD [facility] 12/30/24 Hydrocodone-Acetaminophen (Hydrocodone/Acetaminophen 10-325 mg) 1 Tab Tab, 1 TAB PO Q6HPRN PRN for 7 Days, #28 TAB Prov:АННА AMIN DO 12/30/24 Docusate Sodium (Colace) 100 Mg Cap, 1 CAP PO BID, #60 CAP 2 Refills Prov:АННА AMIN DO 12/30/24 Mode of Arrival: Ambulatory Past Medical History PAST MEDICAL HISTORY: Denies Surgical History: MEDICAL OFFICE SPECIALIST History: No Pertinent MEDICAL OFFICE SPECIALIST History Family History Family History: Reviewed,noncontributory to illness, Family hx of Cancer Social History Smoker: Quit Greater Than 1 Year Alcohol: Occasionally Drugs: Denies Drug Use Lives In: Home All Other Systems: Reviewed and Negative (As per HPI) Physical Exam General Appearance: No Apparent Distress, Normal HEENT: Normal ENT Inspection, Pharynx Normal, TMs Normal Neck: Full Range of Motion, Non-Tender, Normal, Normal Inspection Respiratory: Chest Non-Tender, Lungs Clear, No Accessory Muscle Use, No Respiratory Distress, Normal Breath Sounds Cardiovascular: No Edema, No JVD, No Murmur, No Gallop, Normal Peripheral Pulses, Regular Rate/Rhythm Breast Exam: Deferred Gastrointestinal: Epigastric (tenderness ), No Organomegaly, No Pulsatile Mass, Normal Bowel Sounds, Soft, Tenderness (epigastric area without rebound or guarding ) Genitalia: Deferred Pelvic: Deferred Rectal: Deferred Extremities: No calf tenderness, Normal capillary refill, Normal inspection, Normal range of motion, Non-tender, No pedal edema Musculoskeletal : Apperance: Normal Neurologic: Alert, laminating machine tender II-XII nml as Tested, No Motor Deficits, Normal Affect, Normal Mood, No Sensory Deficits Cerebellar Function: Normal Reflexes: Normal Skin: Dry, Normal Color, Warm Lymphatic: No Adenopathy Was a procedure done? Was a procedure done?: No Differential Dx Considerations may include: gastritis, gastroenteritis, GERD, PUD, cholelithiasis, cholecystitis, among others X-Ray, Labs, Meds, VS Vital Signs Date Time Temp Pulse Resp B/P (MAP) Pulse Ox O2 Delivery O2 Flow Rate FiO2 02/14/25 21:32 97.9 83 16 140/77 100 97.9 Lab Test 02/15/25 00:38 Range/Units White Blood Count 7.7 4.4-10.8 10^3/uL Red Blood Count 3.75 L 4.0-5.20 10^6/uL Hemoglobin 11.2 L 12.2-16.2 g/dL Hematocrit 33.2 L 36.0-46.0 % Mean Corpuscular Volume 88.6 80.0-100.0 fL Mean Corpuscular Hemoglobin 29.9 28.0-32.0 pg Mean Corpuscular Hemoglobin Concent 33.7 32.0-36.0 g/dL Red Cell Distribution Width 14.0 11.8-14.3 % Platelet Count 262 140-450 10^3/uL Mean Platelet Volume 8.4 6.9-10.8 fL Neutrophils (%) (Auto) 40.8 37.0-80.0 % Lymphocytes (%) (Auto) 49.3 10.0-50.0 % Monocytes (%) (Auto) 8.1 0.0-12.0 % Eosinophils (%) (Auto) 1.4 0.0-7.0 % Basophils (%) (Auto) 0.4 0.0-2.0 % Neutrophils # (Auto) 3.2 1.6-8.6 10 ^3/uL Lymphocytes # (Auto) 3.8 0.4-5.4 10 ^3/uL Monocytes # (Auto) 0.6 0-1.3 10 ^3/uL Eosinophils # (Auto) 0.1 0-0.8 10 ^3/uL Basophils # (Auto) 0 0-0.2 10 ^3/uL Nucleated Red Blood Cells 0.1 % Prothrombin Time 10.7 9.3-11.8 sec Prothrombin Time INR 1.01 0.9-1.15 Activated Partial Thromboplast Time 26.9 24.5-34.5 SEC Sodium Level 141 136-145 mmol/L Potassium Level 3.6 3.5-5.1 mmol/L Chloride Level 108 H 98-107 mmol/L Carbon Dioxide Level 25 20-31 mmol/L Anion Gap 8 5-15 Blood Urea Nitrogen 15 9-23 mg/dL Creatinine 1.05 H 0.550-1.02 mg/dL Glomerular Filtration Rate Calc 69 >90 mL/min BUN/Creatinine Ratio 14.3 10.0-20.0 Serum Glucose 81 74-106 mg/dL Calcium Level 9.4 8.7-10.4 mg/dL Total Bilirubin 0.4 0.2-1.0 mg/dL Aspartate Amino Transferase (AST) 67 H 13-40 U/L Alanine Aminotransferase (ALT) 95 H 7-40 U/L Alkaline Phosphatase 182 H 46-116 U/L Total Protein 7.6 5.7-8.2 g/dL Albumin 4.8 3.2-4.8 g/dL Lipase 39 12-53 U/L Time of 1ST Reevaluation: 00:20 Reevaluation 1ST: Unchanged Patient Education/Counseling: Diagnosis, Treatment, Need For Follow Up Family Education/Counseling: Diagnosis, Treatment, Need For Follow Up SEPSIS Sepsis Screen Date sepsis recognized/suspect: Feb 14, 2025 Time Sepsis recognized/suspect: 2131 Recent Procedure: No On Antibiotic Therapy: No Respiratory Rate >20: No Heart Rate >90: No Temp<36 C (96.8 F) or >38.3 C: No SBP <90 or MAP <65 mmHG: No New Acute Mental Status Change: No Is the patient on CPAP, BIPAP,: No Physician Orders Urinalysis (02/15/25 00:00) Gallbladder (02/15/25 00:00) Test, Urine (02/15/25 00:00) Vital Signs Date Time Temp Pulse Resp B/P (MAP) Pulse Ox O2 Delivery O2 Flow Rate FiO2 02/14/25 21:32 97.9 83 16 140/77 100 97.9 Laboratory Tests Test 02/15/25 00:38 White Blood Count 7.7 10^3/uL (4.4-10.8) Departure 1 Departure Time of Disposition: 01:47 Impression: Primary Impression: Intractable abdominal pain Additional Impression: Cholelithiasis Disposition: ADMITTED INPATIENT Condition: Guarded Discharged With: Self Comments 40-year-old female with gallstones. Lab and ultrasound results reviewed. Patient is still has pain on re-evaluation. Patient will need admission for supportive care and potential cholecystectomy Critical Care Note Critical Care Time?: No Stability Stability form required: No Heart Score Heart Score: Heart Score Response (Comments) Value History N/A 0 EKG N/A 0 Age N/A 0 Risk Factors N/A 0 Troponin N/A 0 Total 0 I personally scribed for WM GARCIA MD ([email or web address]) on 02/15/25 at 00:04. Electronically submitted by Km Wilkinson ([email or web address]). I personally scribed for WM GARCIA MD ([email or web address]) on 02/15/25 at 00:04. Electronically submitted by Km Wilkinson ([email or web address]). WM GARCIA MD Feb 15, 2025 00:04
[2025-02-15 01:03] LABS: Hematocrit 33.2 % (36.0-46.0); Hemoglobin 11.2 g/dL (12.2-16.2); Mean Corpuscular Hemoglobin 29.9 pg (28.0-32.0); Mean Corpuscular Volume 88.6 fL (80.0-100.0); Nucleated Red Blood Cells % 0.1 %
--- NOTE | 2025-02-15 01:18 | DVH ---
INDICATION: RUQ pain TECHNIQUE: Multiple real-time sonographic images were obtained of the right upper quadrant. COMPARISON: US ABDOMEN LIMITED on DOS: 02/02/25 FINDINGS: The liver demonstrates diffusely increased echotexture without focal mass lesions. The live r measures 17.3 cm. Normal hepatopetal portal flow identified. No evidence of pleural effusion or ab dominal ascites. There is no intrahepatic or extrahepatic ductal dilatation. The common duct measures 0.3 cm. Mobile gallstones identified within the gallbladder. The gallbladder wall measures 0.2 cm and is with in normal limits. Negative sonographic clemente's sign. The right kidney measures 9.4 cm. The right kidney is normal in contour, size, and shape. The echogen icity is normal. There is no hydronephrosis. The pancreas is not well visualized due to overlying bowel gas. IMPRESSION: 1. Cholelithiasis without sonographic evidence of acute cholecystitis. 2. Hepatic steatosis and hepatomegaly.
[2025-02-15 01:21] LABS: Albumin 4.8 g/dL (3.2-4.8); Anion Gap 8 (5-15); BUN/Creatinine Ratio 14.3 (10.0-20.0); Blood Urea Nitrogen 15 mg/dL (9-23); Calcium 9.4 mg/dL (8.7-10.4); Carbon Dioxide 25 mmol/L (20-31); Glucose 81 mg/dL (74-106); Lipase 39 U/L (12-53); Potassium 3.6 mmol/L (3.5-5.1); Sodium 141 mmol/L (136-145); Total Protein 7.6 g/dL (5.7-8.2)
[2025-02-15 01:22] LABS: Bilirubin, Total 0.4 mg/dL (0.2-1.0)
[2025-02-15 01:23] LABS: INR 1.01 (0.9-1.15); Partial Thromboplastin Time 26.9 SEC (24.5-34.5); Prothrombin Time 10.7 sec (9.3-11.8)
[2025-02-15 01:25] LABS: Alanine Aminotransferase 95 U/L (7-40); Alkaline Phosphatase 182 U/L (46-116); Chloride 108 mmol/L (98-107)
[2025-02-15 02:15] LABS: Urine Protein, UAD TRACE (Negative)
--- NOTE | 2025-02-15 03:07 | DVHHPRES ---
History of Present Illness Resident Creating Document: MIROSLAVA HERNANDEZ RESIDENT History of Present Illness 40-year-old female with past medical history of gallstones, and past surgical history of section two weeks ago presented with complaints of intractable epigastric pain. Patient mentioned that she has been having on and off pain for last three days, epigastric pain radiating to back, associated with nausea and vomiting, which worsened on eating greasy foods She Did not have any vomiting episode today . Patient was diagnosed with gallstones during her previous admission for section two weeks ago. Patient also mentioned in his symptoms of urinary tract infection including dysuria for last one week. Patient had section done on December 29, 2024. Patient mentioned that she has chronic changes in bowel habits including constipation for three days followed by diarrhea. Patient denied any chest pain, shortness of breath, headache, dizziness, palpitations. Patient denied any previous history of pancreatitis Past medical history Gallstones Past surgical history section two weeks ago Medication history [place] Ibuprofen Social history Quit two months ago smoking, smoked for 10 years, one pack every day Denied alcohol, marijuana or any other drug intake Family history Noncontributory to the above illness Review of Systems Review of Systems ROS Constitutional: No: Fever, Chills, Sweats, Weakness, Malaise, Other Eyes: No: Pain, Vision change, Conjunctivae inflammation, Eyelid inflammation, Other, Redness ENT: No: Ear pain, Ear discharge, Nose pain, Nose discharge, Nose congestion, Mouth pain, Mouth swelling, Throat pain, Throat swelling, Other Respiratory: No: Cough, Dry, Shortness of breath, SOB with excertion, Wheezing, Hemoptysis, Pleuritic Pain, Sputum, Wheezing, Other Cardiovascular: No: Chest Pain, Palpitations, Orthopnea, Paroxysmal Noc. Dyspnea, Edema, Lt Headedness, Other Gastrointestinal: Epigastric pain, diarrhea, constipation, vomiting, nausea, no Diarrhea, Constipation, Melena, Hematochezia, Other Musculoskeletal: No: other, neck pain, shoulder pain, arm pain, back pain, hand pain, leg pain, foot pain Neurological:; No: Weakness, Numbness, Incoordination, Change in speech, Confusion, Seizures Allergies: Coded Allergies: NO KNOWN ALLERGIES (Unverified , 12/18/09) Exam Vital Signs Vital Signs Date Time Temp Pulse Resp B/P (MAP) Pulse Ox O2 Delivery O2 Flow Rate FiO2 9/7/25 21:32 97.9 83 16 140/77 100 97.9 Exam Examination General Appearance: Alert, Oriented X3, Cooperative, No acute distress HEENT: EOMI Respiratory: Clear to auscultation, Normal air movement Cardiovascular: Regular rate, Normal S1, Normal S2 Abdominal: Normal bowel sounds, mild epigastric tenderness Extremities: No cyanosis, No edema, Normal pulses, No tenderness/swelling Skin: No rashes, No breakdown Neuro: Normal gait, Normal speech, Strength at 5/5 X4 ext, Normal tone, Sensation intact, Cranial nerves 3-12 NL, Reflexes 2+ Psych/Mental Status: Mental status NL, Mood NL Labs/Xrays Labs Test 02/15/25 00:38 02/15/25 00:00 Range/Units White Blood Count 7.7 4.4-10.8 10^3/uL Red Blood Count 3.75 L 4.0-5.20 10^6/uL Hemoglobin 11.2 L 12.2-16.2 g/dL Hematocrit 33.2 L 36.0-46.0 % Mean Corpuscular Volume 88.6 80.0-100.0 fL Mean Corpuscular Hemoglobin 29.9 28.0-32.0 pg Mean Corpuscular Hemoglobin Concent 33.7 32.0-36.0 g/dL Red Cell Distribution Width 14.0 11.8-14.3 % Platelet Count 262 140-450 10^3/uL Mean Platelet Volume 8.4 6.9-10.8 fL Neutrophils (%) (Auto) 40.8 37.0-80.0 % Lymphocytes (%) (Auto) 49.3 10.0-50.0 % Monocytes (%) (Auto) 8.1 0.0-12.0 % Eosinophils (%) (Auto) 1.4 0.0-7.0 % Basophils (%) (Auto) 0.4 0.0-2.0 % Neutrophils # (Auto) 3.2 1.6-8.6 10 ^3/uL Lymphocytes # (Auto) 3.8 0.4-5.4 10 ^3/uL Monocytes # (Auto) 0.6 0-1.3 10 ^3/uL Eosinophils # (Auto) 0.1 0-0.8 10 ^3/uL Basophils # (Auto) 0 0-0.2 10 ^3/uL Nucleated Red Blood Cells 0.1 % Prothrombin Time 10.7 9.3-11.8 sec Prothrombin Time INR 1.01 0.9-1.15 Activated Partial Thromboplast Time 26.9 24.5-34.5 SEC Sodium Level 141 136-145 mmol/L Potassium Level 3.6 3.5-5.1 mmol/L Chloride Level 108 H 98-107 mmol/L Carbon Dioxide Level 25 20-31 mmol/L Anion Gap 8 5-15 Blood Urea Nitrogen 15 9-23 mg/dL Creatinine 1.05 H 0.550-1.02 mg/dL Glomerular Filtration Rate Calc 69 >90 mL/min BUN/Creatinine Ratio 14.3 10.0-20.0 Serum Glucose 81 74-106 mg/dL Calcium Level 9.4 8.7-10.4 mg/dL Total Bilirubin 0.4 0.2-1.0 mg/dL Aspartate Amino Transferase (AST) 67 H 13-40 U/L Alanine Aminotransferase (ALT) 95 H 7-40 U/L Alkaline Phosphatase 182 H 46-116 U/L Total Protein 7.6 5.7-8.2 g/dL Albumin 4.8 3.2-4.8 g/dL Lipase 39 12-53 U/L Urine Color Yellow Yellow Urine Clarity Clear Clear Urine pH 5.5 5.0-9.0 Urine Specific [place] 1.030 1.001-1.035 Urine Protein Trace H Negative Urine Ketones Negative Negative Urine Blood 3+ H Negative /uL Urine Nitrite Negative Negative Urine Bilirubin Negative Negative Urine Urobilinogen Normal Negative mg/dL Urine Leukocyte Esterase Negative Negative /uL Urine RBC 168 0 - 4 /hpf Urine Microscopic WBC 6 H 0-5 /HPF Urine Squamous Epithelial Cells Few <5 /hpf Urine Bacteria None seen None Seen /hpf Urine Mucus Few None Seen Urine Glucose Normal Normal mg/dL Urine Test Negative Negative SEPSIS Sepsis Screen Date sepsis recognized/suspect: Feb 14, 2025 Time Sepsis recognized/suspect: 2131 Recent Procedure: No On Antibiotic Therapy: No Respiratory Rate >20: No Heart Rate >90: No Temp<36 C (96.8 F) or >38.3 C: No SBP <90 or MAP <65 mmHG: No New Acute Mental Status Change: No Is the patient on CPAP, BIPAP,: No Physician Orders Gallbladder (02/15/25 00:00) Admit (02/15/25 02:59) Oxygen By Nasal Cannula (02/15/25 02:59) Stat Ekg For Chest Pain (02/15/25 02:59) Notify Of Changes From Base (02/15/25 02:59) Agency Sales Representative For 24 Hours (02/15/25 02:59) Emergency Dysrhythmia Protocol (02/15/25 02:59) Rhythm Strips Once Every Shift (02/15/25 02:59) Urine Bacterial Culture (02/15/25 02:59) Ct Ab Pel Wo Con-No Oral Or Iv (02/15/25 02:59) Lipase (02/15/25 02:59) Pantoprazole (Protonix) (02/15/25 03:00) Ceftriaxone Ivpb Rocephin (02/15/25 03:00) Ceftriaxone Ivpb Rocephin (02/16/25 09:00) Vital Signs Date Time Temp Pulse Resp B/P (MAP) Pulse Ox O2 Delivery O2 Flow Rate FiO2 02/14/25 21:32 97.9 83 16 140/77 100 97.9 Laboratory Tests Test 02/15/25 00:38 White Blood Count 7.7 10^3/uL (4.4-10.8) Assessment/Plan Assessment/Plan Assessment/plan # acute intractable pain, radiating to back, likely biliary colic, rule out pancreatitis Ordered lipase Order CT scan of the abdomen pelvis IV pain medication IV pantoprazole considering history of NSAID intake # cholelithiasis - without cholecystitis, as per ultrasound If clinical suspicion consider HIDA scan Consider surgical consult if patient planned to have elective cholecystectomy in the hospital # acute symptomatic UTI -urine routine analysis showed evidence of UTI and patient has symptomatic UTI -urine culture IV ceftriaxone # Hepatic steatosis and hepatomegaly. Seen on gallbladder ultrasound Ordered hepatic panel # transaminitis, likely due to cholelithiasis Monitor # mild, normocytic anemia Monitor CBC We will resume ferrous sulfate once patient is started on diet # history of recent section # DVT prophylaxis Patient is ambulatory Code status discussed with the patient for greater than 21 minutes, full code Case discussion with Dr Christensen Plan discussed with: Patient, Other My Orders Orders - MIROSLAVA HERNANDEZ RESIDENT Procedure Category Date Status Time Admit ADMIT 02/15/25 Transmitted 02:59 Oxygen By Nasal RT 02/15/25 Transmitted Cannula 02:59 Stat Ekg For Chest [facility] 02/15/25 In Process Pain 02:59 Notify Of Changes [facility] 02/15/25 In Process From Base 02:59 Agency Sales Representative For [facility] 02/15/25 In Process 24 Hours 02:59 Emergency Dysrhythmia [facility] 02/15/25 In Process Protocol 02:59 Rhythm Strips Once [facility] 02/15/25 In Process Every Shift 02:59 Urine Bacterial ABISAI 02/15/25 Transmitted Culture 02:59 Ct Ab Pel Wo Con-No CT 02/15/25 Logged Oral Or Iv 02:59 Lipase LAB 02/15/25 Logged 02:59 Pantoprazole PHA 02/15/25 Transmitted (Protonix) 03:00 Ceftriaxone Ivpb PHA 02/15/25 Transmitted Rocephin 03:00 Ceftriaxone Ivpb PHA 02/16/25 Transmitted Rocephin 09:00 MIROSLAVA HERNANDEZ RESIDENT Feb 15, 2025 03:07
--- NOTE | 2025-02-15 04:03 | DVH ---
Exam: CT CT AB PEL WO CON-NO ORAL OR IV History: rule out pancreatitis Comparison Study: US ABDOMEN LIMITED on DOS: 02/02/25, CT ABD PELVIS WO CONTRAST on DOS: 07/30/21 Technique: Multidetector spiral CT of the abdomen was performed from lung bases to pubic symphysis. I maging was performed without IV contrast. Axial, coronal and sagittal multiplanar reformats were obta ined from the axial data set by the technologist. Radiation Dose : 1. Abdomen/Pelvis: CTDIvol 18.05 mGy, DLP 1040.41 mGy*cm. Findings: Evaluation of solid organs is limited due to lack of intravenous contrast use. Lung Bases: No acute or significant lung base finding. Normal heart size. No pleural or pericardial effusion. Liver: The liver is normal in size. No focal lesions. Gallbladder and Biliary Tree: Unremarkable Spleen: Unremarkable Pancreas: The pancreas is grossly normal in appearance. Adrenal Glands: Unremarkable Kidneys: Kidneys are grossly normal without calculi or hydronephrosis. Bladder: Grossly unremarkable for degree of distention. Bowel: The stomach is grossly normal in appearance. Small bowel and colon are normal in caliber and d istribution. The appendix is normal. Ascites: Absent Lymphadenopathy: No mesenteric, retroperitoneal or periportal lymphadenopathy. Abdominal Wall and Mesentery: Unremarkable. Vasculature: The visualized abdominal aorta is normal in size and caliber. Evaluation of abdominal a nd pelvic vessels is limited due to lack of intravenous contrast. Pelvic Organs: Right adnexal cystic structure of near water attenuation measures 5.2 x 4.0 cm. The ut erus is unremarkable. Musculoskeletal: No aggressive focal bony lesions, acute fractures or dislocation. IMPRESSION: 1. Grossly normal appearing pancreas. 2. No evidence of acute abdominopelvic process. 3. Right adnexal cyst measures 5.2 x 4.0 cm. Radiation optimization: All CT scans at this facility use at least one of these dose optimization angie hniques: automated exposure control mA and/or kV adjustment per patient size (includes targeted exam s where dose is matched to clinical indication) or iterative reconstruction.
[2025-02-15] MEDS ORDERED: MORPHINE SULFATE INJ 2 MG/ml SYRG IV PRN (04:15)
[2025-02-15 04:44] LABS: Hematocrit 32.0 % (36.0-46.0); Hemoglobin 10.6 g/dL (12.2-16.2); Mean Corpuscular Hemoglobin 29.4 pg (28.0-32.0); Mean Corpuscular Volume 89.0 fL (80.0-100.0); Nucleated Red Blood Cells % 0.1 %
[2025-02-15 04:59] LABS: Potassium 4.0 mmol/L (3.5-5.1); Sodium 142 mmol/L (136-145)
[2025-02-15 05:00] LABS: Anion Gap 8 (5-15); Calcium 9.1 mg/dL (8.7-10.4); Carbon Dioxide 26 mmol/L (20-31)
[2025-02-15 05:05] LABS: BUN/Creatinine Ratio 15.2 (10.0-20.0); Blood Urea Nitrogen 15 mg/dL (9-23); Glucose 83 mg/dL (74-106); Lipase 43 U/L (12-53)
[2025-02-15 05:06] LABS: Chloride 108 mmol/L (98-107); Magnesium 2.0 mg/dL (1.6-2.6)
[2025-02-15 07:28] VITALS: RESP 16
[2025-02-15 07:44] LABS: Albumin 4.3 g/dL (3.2-4.8); Bilirubin, Direct 0.1 mg/dL (<0.3); Bilirubin, Total 0.3 mg/dL (0.2-1.0); Total Protein 7.1 g/dL (5.7-8.2)
[2025-02-15 07:45] LABS: Alanine Aminotransferase 84.0 U/L (7-40); Alkaline Phosphatase 163.0 U/L (46-116)
[2025-02-15] MEDS: PANTOPRAZOLE 40 MG/10 ML VIAL INJ IV ONE (08:05)
[2025-02-15 09:57] VITALS: BP 119/73; PULSE 63; TEMP 98; O2SAT 100
--- NOTE | 2025-02-15 10:13 | DVHPNRES ---
Progress Note Date Seen: Feb 15, 2025 Resident Creating Document: FREDY PECK RESIDENT Objective vital signs Vital Sign Date Time Temp Pulse Resp B/P (MAP) Pulse Ox O2 Delivery O2 Flow Rate FiO2 02/15/25 09:57 98.0 63 119/73 (88) 100 98.0 02/15/25 07:28 16 Room Air medications Current Medications Medications Dose Ordered Sig/Lucita Route Start Time Stop Time Status Last Admin Dose Admin Ceftriaxone Sodium 50 ml @ 100 mls/hr Q24H IV 02/16/25 04:00 Morphine Sulfate 0.5 mg Q6HP PRN IV 02/15/25 04:15 laboratory and microbiology Laboratory Tests 02/15/25 04:28 Test 02/15/25 04:28 Range/Units Serum Glucose 83 74-106 mg/dL FREDY PECK RESIDENT Feb 15, 2025 10:13
[2025-02-15] MEDS ORDERED: PANT40TA2 PO (12:33)
[2025-02-15] MEDS ORDERED: MAA30LQ PO (12:33)
[2025-02-15] MEDS ORDERED: HYDR-4798 PO (12:33)
--- NOTE | 2025-02-15 12:43 | DVHDSRES ---
Discharge Summary Date of Admission Resident Creating Document: FREDY PECK Feb 15, 2025 at 02:59 Date of Discharge: Feb 15, 2025 Admitting Diagnosis Symptomatic Cholelithiasis Labs/Diagnostic Data: Laboratory Results Test 02/15/25 04:28 02/15/25 00:38 02/15/25 00:00 White Blood Count 6.5 10^3/uL (4.4-10.8) Red Blood Count 3.60 10^6/uL (4.0-5.20) Hemoglobin 10.6 g/dL (12.2-16.2) Hematocrit 32.0 % (36.0-46.0) Mean Corpuscular Volume 89.0 fL (80.0-100.0) Mean Corpuscular Hemoglobin 29.4 pg (28.0-32.0) Mean Corpuscular Hemoglobin Concent 33.0 g/dL (32.0-36.0) Red Cell Distribution Width 14.4 % (11.8-14.3) Platelet Count 252 10^3/uL (140-450) Mean Platelet Volume 8.3 fL (6.9-10.8) Neutrophils (%) (Auto) 47.1 % (37.0-80.0) Lymphocytes (%) (Auto) 41.6 % (10.0-50.0) Monocytes (%) (Auto) 9.4 % (0.0-12.0) Eosinophils (%) (Auto) 1.5 % (0.0-7.0) Basophils (%) (Auto) 0.4 % (0.0-2.0) Neutrophils # (Auto) 3.1 10 ^3/uL (1.6-8.6) Lymphocytes # (Auto) 2.7 10 ^3/uL (0.4-5.4) Monocytes # (Auto) 0.6 10 ^3/uL (0-1.3) Eosinophils # (Auto) 0.1 10 ^3/uL (0-0.8) Basophils # (Auto) 0 10 ^3/uL (0-0.2) Nucleated Red Blood Cells 0.1 % Sodium Level 142 mmol/L (136-145) Potassium Level 4.0 mmol/L (3.5-5.1) Chloride Level 108 mmol/L (98-107) Carbon Dioxide Level 26 mmol/L (20-31) Anion Gap 8 (5-15) Blood Urea Nitrogen 15 mg/dL (9-23) Creatinine 0.99 mg/dL (0.550-1.02) Glomerular Filtration Rate Calc 74 mL/min (>90) BUN/Creatinine Ratio 15.2 (10.0-20.0) Serum Glucose 83 mg/dL (74-106) Calcium Level 9.1 mg/dL (8.7-10.4) Magnesium Level 2.0 mg/dL (1.6-2.6) Total Bilirubin 0.3 mg/dL (0.2-1.0) Direct Bilirubin 0.1 mg/dL (<0.3) Aspartate Amino Transferase (AST) 55 U/L (13-40) Alanine Aminotransferase (ALT) 84 U/L (7-40) Alkaline Phosphatase 163 U/L (46-116) Total Protein 7.1 g/dL (5.7-8.2) Albumin 4.3 g/dL (3.2-4.8) Lipase 43 U/L (12-53) Prothrombin Time 10.7 sec (9.3-11.8) Prothrombin Time INR 1.01 (0.9-1.15) Activated Partial Thromboplast Time 26.9 SEC (24.5-34.5) Urine Color Yellow (Yellow) Urine Clarity Clear (Clear) Urine pH 5.5 (5.0-9.0) Urine Specific [place] 1.030 (1.001-1.035) Urine Protein Trace (Negative) Urine Ketones Negative (Negative) Urine Blood 3+ /uL (Negative) Urine Nitrite Negative (Negative) Urine Bilirubin Negative (Negative) Urine Urobilinogen Normal mg/dL (Negative) Urine Leukocyte Esterase Negative /uL (Negative) Urine RBC 168 /hpf (0 - 4) Urine Microscopic WBC 6 /HPF (0-5) Urine Squamous Epithelial Cells Few /hpf (<5) Urine Bacteria None seen /hpf (None Seen) Urine Mucus Few (None Seen) Urine Glucose Normal mg/dL (Normal) Urine Test Negative (Negative) Other Laboratory Tests 02/15/25 04:28 Brief Hx & Hospital Course: 40 year-old female 5 weeks , presented to the ER with upper abdominal pain that radiates to back, the pain increases with food ingestion. Patient is currently not breast-feeding. Patient was diagnosed with symptomatic cholelithiasis, requiring on admission completion of CT abdomen pelvis ruled out pancreatitis, lipase was negative. There was no acute abdominopelvic process according to the CT. However there was 1 right adnexal cyst measured being 5.2x4 cm. Gallbladder ultrasound revealed cholelithiasis without sonographic evidence of acute cholecystitis. Hepatic steatosis and hepatomegaly was found. She denies any burning sensation, urgency or frequency while urination. Urinalysis was negative for UTI. Patient was managed conservatively with IV fluid, IV ceftriaxone and morphine. The patient was advised to follow up with the discharge clinic and primary care doctor and surgery for possible elective cholecystectomy. Patient was advised to follow up with online merchandising coordinator due to adnexal cyst. The discharge and treatment plan was discussed with the patient, patient verbalized understanding. During the discharge the patient was hemodynamically stable, was tolerating oral fluid advised to follow up with appropriate specialties. Pt is lying on bed General Appearance: Alert, Oriented X3, Cooperative, no acute distress HEENT: Atraumatic, Mucous membranes moist/pink Respiratory: Clear to auscultation, Normal air movement, No added sounds Cardiovascular: Regular rate, Normal S1, Normal S2, No murmurs Abdominal/ : Active bowel sounds, Soft, no distention, mild RUQ tenderness Extremities: No edema, Normal pulses, No tenderness/swelling Skin: No Significant rash, except past surgical scars Neuro: Normal speech, sensorimotor deficits none Psych/Mental Status: Mental status NL, Mood NL Nurse was there as remote inpatient coder during examination Goals of care discussed with patient for over 18 minutes: Full code status Discussed plan with Dr. Ingram, patient and nurses. Operations or Procedures CT abdomen pelvis: 1. Grossly normal appearing pancreas. 2. No evidence of acute abdominopelvic process. 3. Right adnexal cyst measures 5.2 x 4.0 cm. Gallbladder ultrasound: 1. Cholelithiasis without sonographic evidence of acute cholecystitis. 2. Hepatic steatosis and hepatomegaly. Condition at Discharge: Stable Final Diagnosis/Problems List # Symptomatic cholelithiasis # Rule out pancreatitis # Cholelithiasis # Ruled UTI # Microscopic hematuria # Hepatic steatosis and hepatomegaly. # Transaminitis # Mild, normocytic anemia # History of recent section Discharge Disposition: Home SNF Discharge Will this Physician continue t: No Discharge Instruct/Medications Diet: Consistent carbohydrate, Cardiac 2g Na,low cholest Activity: No Restrictions, As Tolerated Follow Up/Referral: [facility] Medications: PER EMR Scheduled Alum & Mag Hydrox-Simethicone (Maalox Plus), 30 ML PO Q6HR Ferrous Sulfate (Ferrous Sulfate), 1 TAB PO DAILY Pantoprazole Sodium Sesquihydr (Protonix), 40 MG PO DAILY Vit W/ Ferrous Fumara ( One Daily), 1 TAB PO DAILY Scheduled PRN Hydrocodone-Acetaminophen (Hydrocodone Bitartrate/AC 10-325 mg), 1 TAB PO Q6HPRN PRN Discontinued Medications Docusate Sodium (Colace), 1 CAP PO BID Hydrocodone-Acetaminophen (Hydrocodone/Acetaminophen 10-325 mg), 1 TAB PO Q6HPRN PRN Ibuprofen (Ibuprofen), 800 MG PO TID PRN Nitrofurantoin Monohydrate Mac (Macrobid), 100 MG PO BID Ondansetron Odt 4MG Tab (Zofran Po), 4 MG PO Q8HPRN PRN Discharge Statement: "Patient was advised to return to the ER or call 911 if any headaches, dizziness, shortness of breath, chest pain, abdominal pain, bleeding, fevers, or worsening of medical condition. Patient was counseled about treatment plan, medications, possible side effects, patientverbalized understanding. All questions were answered to the best of my ability. This discharge took greater then 30 minutes in planning, reviewing documentation, counseling the patient, and discussing with other team members." ASSESSMENT ASSESSMENT Assessment CHOLELITIASIS FREDY PECK RESIDENT Feb 15, 2025 12:43 YUNG COX RESIDENT Feb 16, 2025 21:36
== END 2025-02-15 13:15 | disposition home or self-care (01) ==
LOC: ER 21:30 → OVERFLOW 02-15 02:59
PROVIDERS: ADMIT Student in an Organized Health Care Education/Training Program; ATTEND Student in an Organized Health Care Education/Training Program
DX: K80.20 Calculus of gallbladder without cholecystitis without obstruction (principal); K85.90 Acute pancreatitis without necrosis or infection, unspecified; R16.0 Hepatomegaly, not elsewhere classified; D64.9 Anemia, unspecified; R74.01 Elevation of levels of liver transaminase levels; K76.0 Fatty (change of) liver, not elsewhere classified; R31.29 Other microscopic hematuria; Z87.891 Personal history of nicotine dependence; Z98.891 History of uterine scar from previous surgery
CPT/HCPCS: 36415; 74176; 76705; 80048; 80053; 80076; 81001; 81025; 83690; 83735; 85025; 85610; 85730; 87086; 96361; 96374; G0378; J2470